=== PATIENT | female | born 1955 | race Caucasian/White ===

== ENCOUNTER 2022-03-15 12:57 | Outpatient (CLI) | payer OTHER, SELFPAY | END 2022-03-15 12:58 | disposition home or self-care (01) | LOC: ANHAUDASC 12:59 → ANHAUDIO 13:05 | PROVIDERS: PCP Family Medicine; Visit Provider Family Medicine | DX: H91.90 Unspecified hearing loss, unspecified ear (principal) | CPT/HCPCS: 92557; 92567 ==

== ENCOUNTER 2022-05-20 03:28 | Day surgery (SDC) | payer OTHER, SELFPAY ==
[2022-05-13 11:27] VITALS: BMI 31.9
--- NOTE | 2022-05-19 12:42 | SUR.PREOP ---
1243 PATIENT CALLED AND INSTRUCTED NOT TO TAKE THE MAGNESIUM CITRATE DUE TO POTENTIAL BACTERIAL CONTAMINATION. PATIENT VOICED UNDERSTANDING.
--- NOTE | 2022-05-19 13:35 | PM.HPGS ---
History of Present Illness History of Present Illness Consent: Risks, benefits, and alternatives have been discussed and questions answered. Patient agrees to proceed with procedure. Chief complaint: abdominal pain, diarrhea Narrative: Pita Clements is a 66 year old female Referred for investigation of abdominal pain and also diarrhea. Her father had colon cancer. Review of Systems Review of Systems: All systems reviewed & are unremarkable except as noted in HPI and below PMFSH Past Medical History Medical History Anxiety Shingles Surgical History Surgical History delivery delivered Deficient knowledge of hysterectomy H/O abdominoplasty H/O colonoscopy 05/20/22 repeat 5 years H/O esophagogastroduodenoscopy 05/20/22 History of repair of hiatal hernia Tonsillectomy planned Family History Family History Father Hypertension Family history of arthritis Family history of malignant neoplasm Carcinoma of colon Depression Cerebrovascular accident Mother Family history of chronic obstructive pulmonary disease Family history of emphysema Depression Thyroid disorder Sibling Depression Thyroid disorder Social History Social History Smoking status: Never smoker Second hand tobacco smoke exposure: No Alcohol intake: never Substance use: never Substance use type: does not use Living arrangements: with family Spiritual care concerns: No Agree to blood products: Yes Meds Home Medications and Allergies Home Medications Medication Instructions Recorded Confirmed Type No Home Medications 05/13/22 05/13/22 History Allergies Allergy/AdvReac Type Severity Reaction Status Date / Time No Known Allergies Allergy Unknown Verified 05/20/22 10:28 Exam Const: General: alert Orientation/consciousness: patient oriented x3 Resp: Auscultation: clear to auscultation bilaterally Cardio: Rhythm: regular rhythm GI: GI Palp: Yes Soft to palpation and No Tenderness to palpation present (GI) Neuro: General: patient oriented x3 Assessment and Plan Assessment and plan (1) GERD (gastroesophageal reflux disease): Code(s): K21.9 - Gastro-esophageal reflux disease without esophagitis Status: Acute Assessment and Plan: EGD with possible biopsy or dilatation or cautery. (2) Chronic diarrhea: Code(s): K52.9 - Noninfective gastroenteritis and colitis, unspecified Status: Acute Assessment and Plan: Colonoscopy with possible biopsy or polypectomy or cautery or injection of substances.
[2022-05-20 10:29] VITALS: BP 132/80; PULSE 70; RESP 18; TEMP 36.3; O2SAT 99; BMI 31.1
--- NOTE | 2022-05-20 10:32 | P.PNAN_ITS ---
Anes - Initial Pre Proc Eval Procedure: Operation Date: 05/20/22 12:30 Proposed Procedures p Esophagogastroduodenoscopy & Colonoscopy - Satinder Emerson MD Date/Time: 05/20/22 10:32 Surgeon: Satinder Emerson MD Pre Op Diagnosis: abdominal pain, diarrhea Patient Data Age: 66 Gender: F Height: 1.6 m Weight: 79.6 kg Last Vital Signs Temp 36.3 C L 05/20/22 10:29 Pulse 70 05/20/22 10:29 Resp 18 05/20/22 10:29 BP 132/80 05/20/22 10:29 Pulse Ox 99 05/20/22 10:29 O2 Del Method Room Air 05/20/22 10:29 Allergies Allergy/AdvReac Type Severity Reaction Status Date / Time No Known Allergies Allergy Unknown Verified 05/20/22 10:28 Home Medications Medication Instructions Recorded Confirmed Type No Home Medications 05/13/22 05/13/22 History Patient hx anesthesia problems: none Family hx anesthesia problems: none Results Review: All pre-operative results and documents have been reviewed as part of the pre-o perative evaluation. [facility] Past Medical History Medical History Anxiety Shingles Surgical History Surgical History delivery delivered Deficient knowledge of hysterectomy H/O abdominoplasty History of repair of hiatal hernia Tonsillectomy planned Family History Family History Father Hypertension Family history of arthritis Family history of malignant neoplasm Carcinoma of colon Depression Cerebrovascular accident Mother Family history of chronic obstructive pulmonary disease Family history of emphysema Depression Thyroid disorder Sibling Depression Thyroid disorder Social History Social History Smoking status: Never smoker Second hand tobacco smoke exposure: No Alcohol intake: never Substance use: never Substance use type: does not use Living arrangements: with family Spiritual care concerns: No Agree to blood products: Yes Anes - Eval Final PreProcedure Day of Procedure 05/20/22 10:32 Patient weight: obese Heart: regular rate and rhythm Lungs: clear to auscultation Airway: Mallampati scale class 1 Last oral intake: >/= 8 hours ASA classification: II Emergent: no Anesthesia type and monitoring: general GIVS and standard monitoring Results Review: All pre-operative results and documents have been reviewed as part of the pre- operative evaluation. Informed Consent: The patient's anesthetic plan and its attendant risks and benefits were discussed with the patient/family/POA. Questions were solicited and answers provided to the satisfaction of the patient/family/POA.
[2022-05-20] MEDS: LACTATED RINGERS 1,000 ML 150 ML IV CONT (10:36)
--- NOTE | 2022-05-20 11:09 | SUR.OPER ---
EGD start 1109 end 1116 Colon start 1123
[2022-05-20] MEDS: SIMETHICONE ORAL SUSPENSION 20 MG/0.3 ML 30 ML BOTTLE 0.6 ML IRRIGATION (11:10)
[2022-05-20 11:34] VITALS: BP 105/65; PULSE 74; RESP 19; O2SAT 95
[2022-05-20 11:44] VITALS: BP 122/77; PULSE 60; RESP 19; O2SAT 100
[2022-05-20 12:04] VITALS: BP 134/79; PULSE 52; RESP 12; O2SAT 100
== END 2022-05-20 12:08 | disposition home or self-care (01) ==
PROVIDERS: PCP Family Medicine; Visit Provider Internal Medicine Gastroenterology
PROC: 0DJ08ZZ Inspection of Upper Intestinal Tract, Via Natural or Artificial Opening Endoscopic (ICD-10-PCS; CPT 43235; principal; 2022-05-20 12:30)
DX: Z12.11 Encounter for screening for malignant neoplasm of colon (principal); R19.7 Diarrhea, unspecified; K57.30 Diverticulosis of large intestine without perforation or abscess without bleeding; Z80.0 Family history of malignant neoplasm of digestive organs; K22.2 Esophageal obstruction; Z98.84 Bariatric surgery status
CPT/HCPCS: 43249; 43239; G0105; 87081; 88305; J2704; J7120

== ENCOUNTER 2022-05-24 14:53 | Outpatient (CLI) | payer OTHER, SELFPAY ==
--- NOTE | 2022-05-24 15:01 | ECG_ITS ---
Measurements Intervals [place] Rate: 80 P: 17 CT: 140 QRS: 23 QRSD: 86 T: 26 QT: 362 QTc: 418 Interpretive Statements SINUS RHYTHM BASELINE ARTIFACT LOW-VOLTAGE QRS ABNORMAL ECG NO PREVIOUS ECG AVAILABLE FOR COMPARISON Electronically Signed On 05-24-2022 16:39:07 CDT by Efraín Harper M.D.
[2022-05-24 15:30] LABS: Hematocrit 43.1 % (37.0-47.0); Hemoglobin 14.1 g/dL (12.0-15.0)
== END 2022-05-24 14:54 | disposition home or self-care (01) ==
LOC: ANHSURGERY 14:57
PROVIDERS: Anesthesiology; PCP Family Medicine; Visit Provider Surgery Plastic and Reconstructive Surgery
DX: L57.4 Cutis laxa senilis (principal); Z01.818 Encounter for other preprocedural examination
CPT/HCPCS: 36415; 85014; 85018; 93005

== ENCOUNTER 2022-06-01 00:05 | Day surgery (SDC) | payer OTHER, SELFPAY ==
[2022-05-24 12:18] VITALS: BMI 31.1
--- NOTE | 2022-05-24 12:29 | PC.NURSE ---
PRE-OP INSTRUCTIONS, PLEASE READ CAREFULLY Report to the Outpatient Waiting Room, entrance under the green pavilion located off [facility], at time _0700_ on date _06/01/22_. OR Time: _0900_. - A mask is required within the hospital. - You and your visitor will be asked a series of questions to screen for COVID 19 for your protection. - Only one visitor is allowed at this time. - The patient visitor is requested to leave or wait in car when not with patient. -PACK A SMALL OVERNIGHT BAG AND LEAVE IN THE CAR. VISITING HOURS 10AM-8PM, PARK IN FRONT PARKING LOT AND USE MAIN HOSPITAL ENTRANCE. Patients may have clear liquids (water, carbonated beverages, clear teas, apple juice) until 3 hours prior to surgery (0600 AM) with a maximum of 20 ounces. - No food from midnight until time of surgery Take the following medications with a SIP of water the morning of surgery: _N/A_ Medications to discontinue per physician _N/A__, Date to take last dose Please no make-up, nail maltese, hairspray, perfume, deodorant, or body powder the day of surgery. No jewelry (including any body piercings) or valuables the day of surgery, leave them at home. Please take a shower or bath the night before, or the morning of, surgery with an antibacterial soap. Wear comfortable, loose fitting clothing. - Jewelry must be removed prior to entering the operating room. Rings and piercings that are not removed may be cut off. - The hospital will not accept responsibility for valuables. - Please leave all valuables, including medications, at home the day of surgery. If you are going home after surgery, a licensed star route mail driver must drive you home. - NO public transportation without another adult. - We recommend that an adult stay with you for 24 hours following discharge. - We also recommend that you do not drive, make important decision, drink alcoholic beverages, or take any drugs that were not prescribed by your health care provider for at least 24 hours after your discharge time. Follow any additional instructions given to you from your surgeon. If you or anyone in your household have experienced Covid symptoms in the past week, please notify your surgeon or the nurse liaison at the phone number below for possible testing. Telephone instructions given to _PT_and asked if any additional questions and then verbalized understanding. Patient advised to call surgeon office or pre surgery nurse liaison [phone] if any additional questions.
[2022-06-01] VITALS (9 sets, daily range): BP systolic 107–131; BP diastolic 63–80; PULSE 67–113; RESP 12–18; TEMP 36.2–36.6; O2SAT 96–100
--- NOTE | 2022-06-01 06:30 | W.PM.PROC2 ---
Procedure Note - Detailed Date of Procedure 06/01/22 Pre-op Diagnosis skin laxity Post-op Diagnosis Same Procedure Performed 1. Bilateral upper eyelid blepharoplasty 2. Facial rhytidectomy 3. Cervicoplasty Surgeon Dequan Soto MD Description of Procedure Preoperatively the risks, benefits, alternatives were discussed in extensive detail. I want her to be very realistic about the risks involved as well as expectations. Reviewed what we can and cannot accomplish. Realistic expectations of outcome. All questions were answered to satisfaction. Consent obtained. She was marked in the preoperative holding area with her verification. For her upper eyelids I marked along her tarsal crease. I did a pinch test and verified no lagophthalmos with simulated skin resection. Taken to the operating room placed supine on the operating room table. Anesthesia provided by anesthesiology. Prepped and draped in standard sterile fashion. Surgical time-out was taken. I copiously irrigated the eyes with BSS solution. Temporary tarsorrhaphy was placed with a 5 0 nylon. Blepharoplasty 1% lidocaine and 0.25% Marcaine with epinephrine was used anesthetize locally. I sharply incised along the planned blepharoplasty incision lines. I elevated skin flap. I then incised in the direction of the muscle fibers the orbicularis. I opened the medial and middle fat compartment removed only clearly excess adiposity from this verifying a strict hemostasis. I closed using a running subcuticular 5 0 Prolene. This was held medial and lateral with Steri-Strips and benzoin. Face / Neck Local anesthesia was provided with a tumescent solution using lidocaine, epinephrine, and TXA. Once adequate time for effect a fifteen blade used to make a submental incision. Dissection was continued down identified platysma muscle. Elevated skin flaps with good adiposity of the deep surface throughout the neck. Excess preplatysmal fat was removed. I then went sub platysmal and deep fat of the small portion. Care was taken to make sure there was a good smooth contour under the submental area. There really was minimal protrusion of the submandibular glands noted. I plicated the digastric muscle with 2-0 Vicryl. I then slightly trimmed the platysma muscle and imbricated as with vertical mattress sutures using 2-0 Vicryl in multiple layers. Also completed inferior platysmal release with no evidence of neurovascular or other structure injury. I then proceeded made the remainder of the incisions. I elevated skin flaps with good adequate adiposity of the deep surface to have good contour. This was continued for all the areas necessary for mobilization. Next Platysma plication was completed in multiple layers using 2-0 Vicryl bilateral. This is an oblique fashion from the angle towards the malar prominence. Copious irrigated with saline solution and verified strict hemostasis. I placed 10 Franko drains the right 1 went subcutaneous left 1 a broad around under the platysma muscle. These drains were sutured in place postauricular with this 3-0 Vicryl. Low anterior neck has slight excess adiposity that was treated with suction lipectomy on a spatulated cannula. This was low volume < 10cc. The skin flaps were just placed into position without any tension. Trimmed as necessary. Preauricular was closed with 5 0 nylon. Postauricular with 5 0 chromic. I did fiorella in the hairline. Submental was closed using 3-0 Monocryl followed by running subcuticular 4-0 Monocryl and tissue glue. Temporary tarsorrhaphy suture removed. Dressings were placed. Patient was awoken without difficulty. All instrument sponge counts were correct at the end of the case. Estimated Blood Loss 75 Drains Yes (Bilateral franko) Packing No Pathology None sent Complications No immediate complications Condition Stable Disposition PACU
[2022-06-01 07:12] LABS: Urine Cotinine NEGATIVE
[2022-06-01] MEDS: LACTATED RINGERS 1,000 ML 30 ML IV CONT ×3 (07:19→14:19)
--- NOTE | 2022-06-01 08:43 | WPDANESEPPF ---
Anes - Initial Pre Proc Eval Procedure: Operation Date: 06/01/22 09:00 Proposed Procedures p Face and Neck Lift, - Dequan Soto MD s Bilateral Upper Eyelid Blepharoplasty - Dequan Soto MD Date/Time: 06/01/22 08:43 Surgeon: Dequan Soto MD Pre Op Diagnosis: skin laxity Patient Data Age: 66 Gender: F Height: 1.6 m Weight: 77.75 kg Last Vital Signs Temp 97.2 F L 06/01/22 06:55 Pulse 75 06/01/22 06:55 Resp 18 06/01/22 06:55 BP 131/80 06/01/22 06:55 Pulse Ox 98 06/01/22 06:55 O2 Del Method Room Air 06/01/22 06:55 Allergies Allergy/AdvReac Type Severity Reaction Status Date / Time No Known Allergies Allergy Unknown Verified 06/01/22 07:51 Home Medications Medication Instructions Recorded Confirmed Type docusate sodium 100 mg capsule 100 mg PO DAILY #14 caps 05/25/22 06/01/22 Rx (Colace) ondansetron 4 mg disintegrating 4 mg PO Q8H #21 tabs 05/25/22 06/01/22 Rx tablet hydrocodone 5 mg-acetaminophen 325 1 tablet PO Q6H PRN pain #30 tabs 05/26/22 06/01/22 Rx mg tablet lorazepam 0.5 mg tablet 0.5 mg PO QHS PRN anxiety #90 tabs 05/28/22 06/01/22 Rx Laboratory Tests 06/01/22 06:58 Cotinine Negative Patient hx anesthesia problems: none Family hx anesthesia problems: none Results Review: All pre-operative results and documents have been reviewed as part of the pre-operative evaluation. [facility] Past Medical History Medical History Anxiety Shingles Surgical History Surgical History delivery delivered Deficient knowledge of hysterectomy H/O abdominoplasty H/O colonoscopy 05/20/22 repeat 5 years H/O esophagogastroduodenoscopy 05/20/22 History of repair of hiatal hernia Tonsillectomy planned Family History Family History Father Hypertension Family history of arthritis Family history of malignant neoplasm Carcinoma of colon Depression Cerebrovascular accident Mother Family history of chronic obstructive pulmonary disease Family history of emphysema Depression Thyroid disorder Sibling Depression Thyroid disorder Social History Social History Smoking status: Never smoker Second hand tobacco smoke exposure: No Alcohol intake: never Substance use: never Substance use type: does not use Living arrangements: with family Spiritual care concerns: No Agree to blood products: Yes Anes - Eval Final PreProcedure Day of Procedure 06/01/22 08:43 Patient weight: obese Heart: regular rate and rhythm Lungs: clear to auscultation Airway: Mallampati scale class II Neurological: alert and oriented Last oral intake: >/= 8 hours ASA classification: II Emergent: no Anesthetic plan: proceed Anesthesia type and monitoring: general ETT Results Review: All pre-operative results and documents have been reviewed as part of the pre-operative evaluation. Informed Consent: The patient's anesthetic plan and its attendant risks and benefits were discussed with the patient/family/POA. Questions were solicited and answers provided to the satisfaction of the patient/family/POA.
--- NOTE | 2022-06-01 08:52 | WPDHPUPDATE1 ---
History and Physical Update Update Date/Time: 06/01/22 08:52 History and Physical has been reviewed, including an updated exam of the patient. There are NO changes in the patient's condition. Risks, benefits, and alternatives have been discussed and questions answered. Patient agrees to proceed with procedure.
[2022-06-01] MEDS: ceFAZolin 2 GM/D5W 50 ML 2 GM/50 ML BAG IVPB (08:56)
[2022-06-01] MEDS: TRANEXAMIC ACID 1,000MG/ISO100 1,000 MG/100 ML BAG 200 MG IVPB (09:07)
[2022-06-01] MEDS: LIDO 1%/EPINEPHRINE 1:100,000 50 ML VIAL INFILTRATE (09:25)
[2022-06-01] MEDS: BUPIVACAINE HCL 0.25% PF 30 ML VIAL INFILTRATE (09:25)
[2022-06-01] MEDS: fentaNYL CITRATE INJ (*CRX) 100 MCG/2 ML VIAL 25 MCG IV PUSH ×2 (14:06→14:10)
[2022-06-01] MEDS: ONDANSETRON INJ 4 MG/2 ML VIAL IV PUSH ×2 (14:12→20:34)
[2022-06-01] MEDS: MORPHINE SULFATE (*CRX) 2 MG/ML INJ IV PUSH ×3 (15:25→20:33)
[2022-06-01] MEDS: LACTATED RINGERS 1,000 ML 125 ML IV CONT ×2 (15:26→23:14)
--- NOTE | 2022-06-01 15:36 | OBPPTRN ---
1457 Patient transferred to post room #288 via bed. Oriented to unit, room, information board, rooming in, admission packet and security measures. Patient verbalizes understanding.
--- NOTE | 2022-06-01 15:41 | OBPPTRN ---
1457 Patient transferred to post room #288 via bed. Oriented to unit, room, information board, admission packet and security measures. Patient verbalizes understanding.
[2022-06-01] MEDS: DOCUSATE SODIUM 100 MG CAPSULE PO (20:32)
[2022-06-02 00:30] VITALS: BP 106/62; PULSE 67; RESP 12; TEMP 36.6; O2SAT 98
[2022-06-02] MEDS: oxyCODONE/ACETAMINOPHEN (*CRX) 5-325 MG TABLET PO ×2 (00:33→05:48)
[2022-06-02 04:45] VITALS: BP 102/59; PULSE 67; RESP 14; TEMP 36.7; O2SAT 100
[2022-06-02] MEDS: ONDANSETRON INJ 4 MG/2 ML VIAL IV PUSH (06:37)
[2022-06-02 06:40] VITALS: O2SAT 95
--- NOTE | 2022-06-02 06:48 | WPDPN ---
Progress Note: A&P Assessment and Plan (1) Encounter for cosmetic surgery: Code(s): Z41.1 - Encounter for cosmetic surgery Status: Acute Plan She is doing well after bilateral upper eyelid blepharoplasty and face and neck lift. Will plan for discharge home. Today we had a lengthy discussion about the care. Activity limitations. What monitor for. Made sure answered all of her and her families questions to their satisfaction. They voiced an understanding. I will see her back. She knows what medical emergency is in 1 to dial 911/ proceed to the ER. All other questions feel free to reach out any time. Subjective Date/time seen: 06/02/22 06:28 Interval history: Overnight she states she has done well. No fevers or chills. No nausea vomiting. No shortness of breath. Chest pain. No calf tenderness. Having a little difficulty eye. Otherwise no complaints. Of note her oxygen saturation dropped slightly overnight and she was placed on oxygen. She is doing well this morning with 94% air. Again. Chest pain shortness of breath Review of Systems Review of Systems: All systems reviewed & are unremarkable except as noted in HPI and below Exam Narrative: Alert oriented no obvious distress Respiratory unlabored All branches of facial nerve intact. PERRLA EOMI. Her left I did have a little crusting which was removed in at that point she was able to open her eye. No signs of infection. No hematoma. No seroma. Good color and capillary refill throughout. Drains are serosanguineous. No calf tenderness. Negative Homans Objective Data Vital Signs Vital Signs: Vital Signs - 24 hr 06/01/22 06:55 06/01/22 13:45 06/01/22 14:15 Temperature 36.2 C L 36.5 C Pulse Rate 75 113 H 104 H Respiratory Rate 18 12 12 Blood Pressure 131/80 107/72 118/63 Pulse Oximetry 98 99 100 Oxygen Delivery Room Air Simple Face Mask Simple Face Mask Oxygen Flow Rate 6 6 06/01/22 14:25 06/01/22 14:30 06/01/22 14:45 Temperature Pulse Rate 89 Respiratory Rate 12 12 Blood Pressure 115/73 116/69 Pulse Oximetry 96 96 Oxygen Delivery Room Air Nasal Cannula Nasal Cannula Oxygen Flow Rate 2 2 06/01/22 14:00 06/01/22 15:05 06/01/22 20:40 Temperature 36.4 C 36.6 C Pulse Rate 95 100 73 Respiratory Rate 12 18 14 Blood Pressure 120/75 117/69 123/73 Pulse Oximetry 99 97 97 Oxygen Delivery Simple Face Mask Oxygen Flow Rate 6 06/02/22 00:30 Temperature 36.6 C Pulse Rate 67 Respiratory Rate 12 Blood Pressure 106/62 Pulse Oximetry 98 Oxygen Delivery Oxygen Flow Rate Intake/Output Intake/Output: Intake & Output 05/30/22 05/31/22 06/01/22 06/02/22 23:59 23:59 23:59 23:59 Intake Total 1450 Output Total 1555 Balance -105 Meds/Results Medications: Active Medications Generic Name Dose Route Start Last Admin Trade Name Freq PRN Reason Stop Dose Admin Diazepam 5 mg 06/01/22 13:53 Diazepam (*Crx) 5 Mg Tablet PO TID PRN Anxiety Docusate Sodium 100 mg 06/01/22 21:00 06/01/22 20:32 Docusate Sodium 100 Mg Capsule PO 100 mg Q12HR ALAN Administration Lactated Ringer's 1,000 mls @ 125 mls/hr 06/01/22 13:55 06/01/22 23:14 Lr - Lactated Ringers Iv IV CONT 125 mls/hr .Q8H ALAN Administration Morphine Sulfate 2 mg 06/01/22 13:53 06/01/22 20:33 Morphine Sulfate (*Crx) 2 Mg/Ml Inj IV PUSH 2 mg Q2H PRN Administration Pain Ondansetron HCl 4 mg 06/01/22 13:53 06/02/22 06:37 Ondansetron Inj 4 Mg/2 Ml Vial IV PUSH 4 mg Q6H PRN Administration Nausea Oxycodone/Acetaminophen 1 - 2 tablet 06/01/22 13:53 06/02/22 05:48 Oxycodone/Acetaminophen (*Crx) 5-325 Mg Tablet PO 1 tablet Q6H PRN Administration Pain Labs Labs: Laboratory Results - last 24 hr 06/01/22 06:58 Cotinine Negative
--- NOTE | 2022-06-02 06:53 | PM.DS ---
DS: Admitting Diagnosis Discharge Date 06/02/2022 Admitting Diagnosis Encounter for cosmetic surgery DS: Discharge Diagnosis Discharge Diagnosis (1) Encounter for cosmetic surgery: Code(s): Z41.1 - Encounter for cosmetic surgery Status: Acute DS: Summary Hospital Course Hospital Course: She underwent bilateral upper eyelid blepharoplasty as well as face and neck lift. Postoperatively she has done well. Pain controlled. Ambulating. Tolerating diet. Will plan for discharge home. I will see her back. Time spent discussing smoking cessation with patient: more than 10 minutes Time Spent with Patient Time attestation: Total time spent providing and/or coordinating discharge services: Exam Narrative: Alert oriented no obvious distress Respiratory unlabored All branches of facial nerve intact. PERRLA EOMI. Her left I did have a little crusting which was removed in at that point she was able to open her eye. No signs of infection. No hematoma. No seroma. Good color and capillary refill throughout. Drains are serosanguineous. No calf tenderness. Negative Homans DS: Data Data Completed and Pending Labs on day of discharge: Labs from last 24 hours 06/01/22 06:58 Cotinine Negative Discharge Plan Discharge Patient Disposition: Home, Self-Care Discharge Instructions: POST OPERATIVE DISCHARGE INSTRUCTIONS DEQUAN SOTO M.D. [facility] P[facility] SURGERY [address] [place] [address] [address] for 24 hours after anesthesia and while you are taking pain medication. Take all prescribed medication as directed Diet as tolerated. No lifting or activity that raises blood pressure for 48 hours. Regular walking / ambulation. No showering until directed to. Once you shower do not take pain medication before showering as the combination of medication and heat may cause you to feel dizzy or pass out. No pools or tubs for 2 weeks. Call with any questions or concerns. Head of bed elevated. Dressing Care: Leave white steri strips (forehead and temples) in place. Continue facelift wrap 23 hours per day. Sponge bath face / neck until follow-up. If you have any questions or concerns, please call the office . If it is after hours you will be directed to the business administration instructor exchange. Shortness of breath, chest pain, or other medical emergency dial 911 / proceed to the Emergency Room. Stand Alone Forms: General Discharge Instructions Follow-up/Referrals: Dequan Soto MD [Physician] - 1 Week Discharge Medications: Continued ondansetron 4 mg tablet,disintegrating 4 mg PO Q8H Qty: 21 0RF docusate sodium [Colace] 100 mg capsule 100 mg PO DAILY Qty: 14 0RF hydrocodone-acetaminophen 5-325 mg tablet 1 tablet PO Q6H PRN (Reason: pain) Qty: 30 0RF lorazepam 0.5 mg tablet 0.5 mg PO QHS PRN (Reason: anxiety) Qty: 90 0RF
--- NOTE | 2022-06-02 07:44 | WPDANESPN ---
Anes - Prog Note Post-Op Date/Time: 06/02/22 07:44 Cardiovascular status: normal Respiratory status: normal Airway patency: baseline Mental status: baseline Post-Op hydration status: normal Vital Signs: Last Vital Signs Temp 98.1 F 06/02/22 04:45 Pulse 67 06/02/22 04:45 Resp 14 06/02/22 04:45 BP 102/59 L 06/02/22 04:45 Pulse Ox 95 06/02/22 06:40 O2 Del Method Room Air 06/02/22 06:40 O2 Flow Rate 2 06/01/22 14:45 Pain Score (VAS): 11/02 I/O: Intake & Output 06/01/22 06/01/22 06/02/22 15:59 23:59 07:59 Intake Total 350 1100 Output Total 550 205 Balance -200 895 Post-procedural complaints: none Patient Feedback: Patient satisfied with anesthetic care.
[2022-06-02 08:05] VITALS: BP 98/56; PULSE 57; RESP 18; TEMP 36.5; O2SAT 99
[2022-06-02] MEDS: IBUPROFEN 600 MG TABLET PO (10:40)
[2022-06-02] MEDS: DOCUSATE SODIUM 100 MG CAPSULE PO (10:40)
== END 2022-06-02 13:34 | disposition home or self-care (01) ==
LOC: ANHSURGERY 13:53 → ANHOB2 14:31
PROVIDERS: PCP Family Medicine; Visit Provider Surgery Plastic and Reconstructive Surgery
PROC: (CPT 15824; principal; 2022-06-01 09:00)
PROC: (CPT 15822; 2022-06-01 09:00)
PROC: (CPT 15876; 2022-06-01 09:00)
DX: Z41.1 Encounter for cosmetic surgery (principal); L57.4 Cutis laxa senilis; F41.9 Anxiety disorder, unspecified; E66.9 Obesity, unspecified; Z68.30 Body mass index [BMI] 30.0-30.9, adult; Z79.899 Other long term (current) drug therapy
CPT/HCPCS: 15822; 15819; 15825; 80307; 99199; A9270; J0171; J0330; J0690; J1100; J1170; J2250; J2270; J2370; J2405; J2704; J2710; J3010; J7030; J7120; Q9968

== ENCOUNTER 2023-05-07 11:31 | Emergency (ER) | payer OTHER, SELFPAY ==
[2023-05-07] VITALS (11 sets, daily range): BP systolic 120–149; BP diastolic 70–94; PULSE 64–78; RESP 11–18; TEMP 36.1; O2SAT 96–100
--- NOTE | ~2023-05-07 | CT_ITS ---
EXAMINATION: CT abdomen pelvis w con DATE: 05/07/2023 13:15 INDICATION: Worsening pain at the ventral abdominal wall hernia TECHNIQUE: Computed tomography (CT) of the abdomen and pelvis was performed with 100 CC Omnipaque 350 intravenous contrast. Automated exposure control and iterative reconstruction technique were employe d. Exam dose: 350.61 mGy-cm total exam DLP. COMPARISON: None. FINDINGS: There is mild bilateral dependent lower lobe atelectasis. Normal heart size. No pericardial or pleural effusion. Small sliding hiatal hernia. One or more filling defects consistent with polyp and/or stones is suggested in the gallbladder. No g allbladder wall thickening or pericholecystic fluid or fat stranding. No hepatic, splenic, pancreatic, and adrenal space-occupying mass lesion. 5 mm probable mid to upper right renal cyst and 4.5 mm lower pole right renal probable cyst. 12 mm upper pole left renal cyst. No urinary tract calculus or hydroureteronephrosis. Large air-fluid level of the urinary bladder. As there been recent urinary bladder instrumentation?. No bladder wall thickening or intraluminal mass lesion of the urinary bladder is evident. Besides debo dder instrumentation or urinary tract infection, consider fistula as possible source for the air in t he bladder. Clinical correlation is advised. There is a prominent of fecal material and gas in the colon including some liquid stool in the cecum and ascending colon. Diverticulosis of the left colon; no CT evidence of diverticulitis is noted. No bowel obstruction, bowel wall thickening, pneumatosis or intraperitoneal free air is detected. Small fat-containing umbilical hernia. There is a supraumbilical ventral abdominal wall hernia and he rnia sac measures up to approximately 1.6 cm AP and 4 cm vertical 4.5 cm transverse dimension. The ne ck of the hernia measures approximately 1.2 cm. The hernia contains fat, no bowel. No inflammation of the herniated fat is evident. There is atherosclerotic calcification but normal caliber of the abdominal aorta. No intraperitoneal or retroperitoneal or pelvic mass lesion or adenopathy or ascites is noted. Prominent levoscoliosis of the thoracolumbar spine and prominent multilevel degenerative disc disease of the lumbar spine. No suspicious osteolytic or osteoblastic lesions are noted. IMPRESSION: Supraumbilical ventral abdominal wall hernia measuring approximately 1.6 x 4 x 4.5 cm, w ith fat content, no apparent inflammation or strangulation Small sliding hiatal hernia Cannot exclude gallbladder stones or polyps; consider gallbladder ultrasound correlation Renal cysts Large air-fluid level in the urinary bladder; differential diagnosis includes recent bladder instrume ntation, cystitis, fistula Diverticulosis of left colon; no apparent diverticulitis Reviewed, dictated and finalized at [facility]. Reviewed, dictated and finalized at [facility]. IMPRESSION: Supraumbilical ventral abdominal wall hernia measuring approximate ly 1.6 x 4 x 4.5 cm, with fat content, no apparent inflammation or strangulatio n Small sliding hiatal hernia Cannot exclude gallbladder stones or polyps; consider gallbladder ultrasound co rrelation Renal cysts Large air-fluid level in the urinary bladder; differential diagnosis includes r ecent bladder instrumentation, cystitis, fistula Diverticulosis of left colon; no apparent diverticulitis
--- NOTE | 2023-05-07 12:07 | ED.GENADULT ---
HPI - General Adult General Chief complaint: Unspecified <Chun Jiang PA-C - Last Filed: 05/07/23 17:21> Stated complaint: abd hernia <Chun Jiang PA-C - Last Filed: 05/07/23 17:21> Time Seen by Provider: 05/07/23 11:41 <Chun Jiang PA-C - Last Filed: 05/07/23 17:21> Source: patient <HO Doherty Last Filed: 05/07/23 17:21> Mode of arrival: ambulatory <HO Doherty Last Filed: 05/07/23 17:21> Limitations: no limitations <Chun Jiang PA-C - Last Filed: 05/07/23 17:21> History of Present Illness HPI narrative: This is a 67-year-old female who presents to the ED with chief complaint of mid abdominal pain beginning 1 month ago and worse today. Patient states that she has a recent diagnosis of ventral hernia and is scheduled to see Dr. Castro for office visit and surgery. States she has not yet been to his office yet, but the hernia was diagnosed by primary care. She states today it became significantly worse so she came to the ER. Endorses some nausea without vomiting. Denies fevers, chills, skin changes, urinary symptoms, diarrhea, problems with bowel movements, chest pain or shortness of breath. <Chun Jiang PA-C - Last Filed: 05/07/23 17:21> Related Data Home medications: Home Medications Medication Instructions Recorded Confirmed vilazodone 40 mg tablet (Viibryd) 40 mg PO DAILY 09/30/22 04/29/23 magnesium 200 mg tablet 400 mg PO BID 02/23/23 04/29/23 cholecalciferol (vitamin D3) 125 125 mcg PO DAILY 04/29/23 04/29/23 mcg (5,000 unit) capsule multivitamin 1 tablet PO DAILY 04/29/23 04/29/23 <HO Doherty Last Filed: 05/07/23 17:21> Allergies/adverse reactions: Allergies Allergy/AdvReac Type Severity Reaction Status Date / Time doxycycline AdvReac Intermediate Abdominal Uncoded 04/29/23 08:30 Pain <Chun Jiang PA-C - Last Filed: 05/07/23 17:21> [facility] Past Medical History Medical History: Medical History Anxiety Cholelithiasis Hospital discharge follow-up Insomnia Restless leg syndrome Shingles <Chun Jiang PA-C - Last Filed: 05/07/23 17:21> Surgical History Surgical History: Surgical History delivery delivered Deficient knowledge of hysterectomy H/O abdominoplasty H/O colonoscopy 05/20/22 repeat 5 years H/O esophagogastroduodenoscopy 05/20/22 History of repair of hiatal hernia Tonsillectomy planned <HO Doherty Last Filed: 05/07/23 17:21> Family History Family History: Family History Father Hypertension Family history of arthritis Family history of malignant neoplasm Carcinoma of colon Depression Cerebrovascular accident Mother Family history of chronic obstructive pulmonary disease Family history of emphysema Depression Thyroid disorder Sibling Depression Thyroid disorder <Chun Jiang PA-C - Last Filed: 05/07/23 17:21> Social History Social History: Social History Smoking status: Never smoker Second hand tobacco smoke exposure: No Alcohol intake: never Substance use: never Substance use type: does not use Lack of Transportation: No Lack of Food: Never True Current Housing: I Have Housing Concerned About Future Housing: No Difficulty Paying Gas/Electric Bills: No Difficulty Paying for Meds: No Currently Unemployed: No Difficulty w/ Childcare or Family Care: No Living arrangements: with family Occupation/Education: occupation Gender identity (if verbalized by the patient): Female Sexual Orientation (if Verbalized by the Patient): Straight or Heterosexual Spiritual care concerns: No Agree to blood products: Yes <HO Doherty Last Filed: 05/07/23 17:21> Exam Narr
[2023-05-07 12:26] LABS: Basophils Percent Auto 0.6 % (0.2-1.2); Eosinophils Absolute Auto 0.1 K/mm3 (0-0.3); Eosinophils Percent Auto 1.7 % (0-4.4); Hematocrit 45.3 % (37.0-47.0); Hemoglobin 14.6 g/dL (12.0-15.0); Immature Granulocyte Absolute 0.03 K/mm3 (0.00-0.031); Immature Granulocyte Percent A 0.5 % (0-0.5); Lymphocytes Absolute Auto 1.71 K/mm3 (0.9-3.2); Lymphocytes Percent Auto 26.6 % (18.3-44.2); Mean Corpuscular HGB Conc 32.2 g/dl (32-36); Mean Corpuscular Volume 96.2 fl (80-100); Mean Platelet Volume 9.9 fl (7.4-10.4); Monocytes Absolute Auto 0.5 K/mm3 (0.1-0.6); Monocytes Percent Auto 7.2 % (2.6-8.5); Neutrophils Absolute Auto 4.1 K/mm3 (1.3-6.7); Neutrophils Percent Auto 63.4 % (45.5-73.1); Platelet Count Result 190 k/mm3 (150-375); Red Blood Count 4.71 M/mm3 (4.2-5.4); White Blood Count 6.4 K/mm3 (4.5-10.0)
[2023-05-07] MEDS: KETOROLAC 15 MG/ML VIAL (*BKC) IV PUSH (12:27)
[2023-05-07] MEDS: ONDANSETRON INJ 4 MG/2 ML VIAL IV PUSH (12:28)
[2023-05-07 12:36] LABS: Alanine Aminotransferase 25 U/L (6-35); Albumin Level 4.5 g/dL (3.5-5.1); Alkaline Phosphatase 66 U/L (38-126); Anion Gap 5 mmol/L (8-16); Aspartate Amino Transferase 41 U/L (14-36); Bilirubin,Total 0.4 mg/dL (0.2-1.3); Blood Urea Nitrogen 16 mg/dL (7-17); Calcium 9.6 mg/dL (8.4-10.2); Carbon Dioxide 34 mmol/L (22-30); Chloride 100 mmol/L (98-107); Estimated CRCL calculation 52 ml/min; Estimated Glomerular Filt Rate > 60; Glucose 105 mg/dL (65-110); Lipase 101 U/L (23-300); Potassium 4.3 mmol/L (3.4-5.0); Sodium 139 mmol/L (137-145)
== END 2023-05-07 14:41 | disposition home or self-care (01) ==
PROVIDERS: Emergency Provider Physician Assistant; PCP Physician Assistant Medical
DX: K43.9 Ventral hernia without obstruction or gangrene (principal)
CPT/HCPCS: 36415; 74177; 80053; 83690; 85025; 96374; 96375; 99284; J1885; J2405; Q9967

== ENCOUNTER 2023-05-19 02:47 | Day surgery (SDC) | payer OTHER, SELFPAY ==
--- NOTE | 2023-05-18 11:16 | PC.NURSE ---
Report to the Outpatient Waiting Room, entrance under the green pavilion located off [facility], at time __0700 on date __05/19/23 . Planned Procedure Time: ___0900 . Time changes happen often and if your time is changed the preop area will call you the afternoon before. - You and your visitor will be asked to self-screen and do not enter if you have any COVID symptoms. - A mask is optional within the hospital at this time. Patients may have clear liquids (water, carbonated beverages, clear teas, apple juice) until 3 hours prior to surgery with a maximum of 20 ounces. - No food from midnight until time of surgery - Infants may have breast milk until 4 hours before surgery, infant formula 6 hours prior to surgery. - Children will be allowed to drink immediately following surgery. If applicable, please bring a bottle or sippy cup to assist with drinking. Juice, water, soda, and popsicles are readily available. For infants on formula, please bring formula the day of surgery. Pacifiers are allowed. Take the following medications with a SIP of water the morning of surgery: VILAZODONE DO NOT STOP ANY OF YOUR OTHER PRESCRIPTION MEDICATIONS PRIOR TO SURGERY ?EXCEPT THE FOLLOWING Medications to discontinue per physician -SURGERY TOMORROW Date to take last dose Please no make-up, nail swedish, hairspray, perfume, deodorant, or body powder the day of surgery. No jewelry (including any body piercings) or valuables the day of surgery, leave them at home. Please take a shower or bath the night before, or the morning of, surgery with an antibacterial soap. Wear comfortable, loose fitting clothing. Children are encouraged to wear pajamas. - Jewelry must be removed prior to entering the operating room. Rings and piercings that are not removed may be cut off. - The hospital will not accept responsibility for valuables. - Please leave all valuables, including medications, at home the day of surgery. HIBICLENS SHOWER MORNING OF SURGERY If you are going home after surgery, a licensed truck driver instructor must drive you home. - NO public transportation without another adult if you receive anesthesia. - We recommend that an adult stay with you for 24 hours following discharge. - We also recommend that you do not drive, make important decision, drink alcoholic beverages, or take any drugs that were not prescribed by your health care provider for at least 24 hours after your discharge time. For Pediatric surgeries, we recommend two adults accompany the child home. Follow any additional instructions given to you from your surgeon. If you or anyone in your household have experienced Covid symptoms in the past week, please notify your surgeon or the nurse liaison at the phone number below for possible testing. Telephone instructions given to __PT and asked if any additional questions and then verbalized understanding. Patient advised to call surgeon office or pre surgery nurse liaison [phone] if any additional questions.
[2023-05-18 11:17] VITALS: BMI 24.7
--- NOTE | 2023-05-19 07:17 | WPDHPUPDATE1 ---
History and Physical Update Update Date/Time: 05/19/23 07:17 History and Physical has been reviewed, including an updated exam of the patient. There are NO changes in the patient's condition. Risks, benefits, and alternatives have been discussed and questions answered. Patient agrees to proceed with procedure.
[2023-05-19] MEDS: KETOROLAC 15 MG/ML VIAL (*BKC) IV PUSH ×2 (07:40→08:45)
[2023-05-19] MEDS: ACETAMINOPHEN 500 MG TABLET 1000 MG PO (07:40)
[2023-05-19] MEDS: LACTATED RINGERS 1,000 ML 30 ML IV CONT ×2 (07:40→09:08)
--- NOTE | 2023-05-19 07:44 | WPDANESEPPF ---
Anes - Initial Pre Proc Eval Procedure: Operation Date: 05/19/23 07:30 Proposed Procedures p Open Incisional Hernia Repair with Mesh - Scotty Castro MD Date/Time: 05/19/23 07:44 Surgeon: Scotty Castro MD Pre Op Diagnosis: [facility] incisional hernia Patient Data Age: 67 Gender: F Height: 1.6 m Weight: 63.5 kg Allergies Allergy/AdvReac Type Severity Reaction Status Date / Time doxycycline AdvReac Intermediate Abdominal Uncoded 05/18/23 11:32 Pain Home Medications Medication Instructions Recorded Confirmed Type vilazodone 40 mg tablet (Viibryd) 40 mg PO DAILY 09/30/22 05/18/23 History lorazepam 0.5 mg tablet 0.5 mg PO QHS PRN anxiety #90 tabs 11/04/22 05/18/23 Rx magnesium 200 mg tablet 400 mg PO BID 02/23/23 05/18/23 History cholecalciferol (vitamin D3) 125 125 mcg PO DAILY 04/29/23 05/18/23 History mcg (5,000 unit) capsule multivitamin 1 tablet PO DAILY 04/29/23 05/18/23 History ascorbic acid (vitamin C) 1,000 mg 1,000 mg PO DAILY 05/18/23 05/18/23 History tablet Patient hx anesthesia problems: post op nausea/vomiting Family hx anesthesia problems: none Results Review: All pre-operative results and documents have been reviewed as part of the pre-operative evaluation. [facility] Past Medical History Medical History (Updated 05/18/23 @ 11:58 by Gabby Ni PA-C) Anxiety Cholelithiasis Hospital discharge follow-up Insomnia Restless leg syndrome Shingles Thyromegaly thyroid US normal. Surgical History Surgical History delivery delivered Deficient knowledge of hysterectomy H/O abdominoplasty H/O colonoscopy 05/20/22 repeat 5 years H/O esophagogastroduodenoscopy 05/20/22 History of repair of hiatal hernia Tonsillectomy planned Family History Family History Father Hypertension Family history of arthritis Family history of malignant neoplasm Carcinoma of colon Depression Cerebrovascular accident Mother Family history of chronic obstructive pulmonary disease Family history of emphysema Depression Thyroid disorder Sibling Depression Thyroid disorder Social History Social History Smoking status: Never smoker Second hand tobacco smoke exposure: No Alcohol intake: never Substance use: never Substance use type: does not use Lack of Transportation: No Lack of Food: Never True Current Housing: I Have Housing Concerned About Future Housing: No Difficulty Paying Gas/Electric Bills: No Difficulty Paying for Meds: No Currently Unemployed: No Difficulty w/ Childcare or Family Care: No Living arrangements: alone Occupation/Education: occupation Gender identity (if verbalized by the patient): Female Sexual Orientation (if Verbalized by the Patient): Straight or Heterosexual Spiritual care concerns: No Agree to blood products: Yes Anes - Eval Final PreProcedure Day of Procedure 05/19/23 07:44 Patient weight: normal Heart: regular rate and rhythm Lungs: clear to auscultation Airway: Mallampati scale class II Neurological: alert and oriented Last oral intake: >/= 8 hours ASA classification: II Emergent: no Anesthetic plan: proceed Results Review: All pre-operative results and documents have been reviewed as part of the pre-operative evaluation. Informed Consent: The patient's anesthetic plan and its attendant risks and benefits were discussed with the patient/family/POA. Questions were solicited and answers provided to the satisfaction of the patient/family/POA.
[2023-05-19 07:50] VITALS: BP 121/73; PULSE 67; RESP 14; TEMP 36.5; O2SAT 99
[2023-05-19] MEDS: ceFAZolin 2 GM/D5W 50 ML 2 GM/50 ML BAG IVPB (07:51)
[2023-05-19] MEDS: BUPivacaine HCL 0.5% PF 30 ML VIAL INFILTRATE (07:51)
[2023-05-19] MEDS: SCOPOLAMINE 1.5 MG PATCH TRANSDERM (07:54)
[2023-05-19 09:15] VITALS: BP 129/73; PULSE 78; RESP 12; TEMP 36.4; O2SAT 100
--- NOTE | 2023-05-19 09:28 | W.PM.PROC2 ---
Procedure Note - Detailed Date of Procedure 05/19/23 Pre-op Diagnosis Incarcerated epigastric incisional hernia Post-op Diagnosis Same Procedure Performed Open incarcerated epigastric this is incisional hernia repair with Ventralex ST mesh. Surgeon Scotty Castro MD Anesthesia General Indications Patient is a 67-year-old female who several years ago underwent a laparoscopic Tiki fundoplication that I performed. She has been doing well in respect to that surgery. Unfortunate she has returned now with what appears to be a port site incisional hernia and 1 in the epigastric incisions. She has had multiple presentations to the emergency room because of pain but has never had any evidence of bowel obstruction. CT scan shows an approximate 2cm epigastric fascial defect in the midline with fatty tissue incarcerated within the hernia sac. She presents now for an elective open incarcerated incisional hernia repair with mesh. Findings 2cm fascial defect in the epigastric region about 4cm inferior to the tip of the xiphoid process. Incarcerated contents of the hernia sac was preperitoneal fat. Description of Procedure After informed consent was obtained patient brought to the operating room she was placed supine position and then general endotracheal anesthesia was administered. The abdomen was then prepped draped usual sterile fashion. A time-out was then performed correctly identifying the patient as well as procedure to be performed. She was given perioperative IV antibiotics. I then made a longitude incision just over the palpable mass epigastric region the abdomen. Dissection carried down through the subcu tissue electrocautery. The hernia sac was encountered and the subcutaneous tissues around the hernia sac was dissected free of the hernia sac down to the neck of the hernia sac at the fascial level. I then opened the hernia sac and cut away the hernia sac utilize electrocautery. Small amount of preperitoneal fat was noted. This was reduced back through the defect. The fascial defect measured approximately 2cm in diameter. I placed my index finger underneath the anterior abdominal wall and bluntly dissected around the surface anterior abdominal wall. There were no adhesions of bowel or omentum to the undersurface of the anterior abdominal wall in this region. I then chose a piece of ultra light ST mesh measuring 8cm in diameter and circular configuration. I then placed it through the defect into the abdomen and centered on the the defect. The barrier surface the mesh was placed intra-abdominal viscera and the prosthetic surface surface the mesh was in contact with the undersurface anterior abdominal wall. The edges of the mesh were then laid out so that was flat then traction upwards on the mesh straps approximated the mesh to the undersurface anterior abdominal wall the flat configuration. I then secured the mesh circumferentially with some 0 Ethibond sutures placed transfascially. The excess portion of the mesh straps were then cut away and then I palpated the mesh and it was well secured. I then irrigated out the mesh and the incision sterile saline solution. Hemostasis was excellent. I then proceeded to close the fascial edges over the mesh good tissue coverage. Interrupted 2-0 Vicryl sutures were used. I then proceeded to close subcutaneous tissue utilizing interrupted 3-0 Vicryl sutures and then the skin edges were approximated utilizing a running subcuticular 4 Monocryl suture. Exparel liposomal bupivacaine mixed was 0.5% Marcaine was injected around the incision for local anesthetic effect. Once the incision was then cleaned and then placed skin glue on the incision. The patient tolerated the procedure well no complications. All sponges, needles, and instrument counts were correct at the end procedure. EBL was _ 5 __cc. The patient was awakened and taken to recovery in stable and satisfactory condition. Implants Ventralex ST mesh 8cm circ
[2023-05-19 09:30] VITALS: BP 136/72; PULSE 65; RESP 12; O2SAT 100
[2023-05-19 09:45] VITALS: BP 126/69; PULSE 63; RESP 14; O2SAT 96
[2023-05-19 10:00] VITALS: BP 134/73; PULSE 59; RESP 16
[2023-05-19 10:30] VITALS: BP 119/71; PULSE 69; RESP 16
== END 2023-05-19 10:40 | disposition home or self-care (01) ==
PROVIDERS: PCP Physician Assistant Medical; Visit Provider Surgery
PROC: 0WQF0ZZ Repair Abdominal Wall, Open Approach (ICD-10-PCS; CPT 49592; principal; 2023-05-19 07:30)
DX: K43.0 Incisional hernia with obstruction, without gangrene (principal); F41.9 Anxiety disorder, unspecified
CPT/HCPCS: 49592; A9270; C1781; C9290; J0690; J1100; J1170; J1885; J2250; J2405; J2704; J2710; J3010; J7120

== ENCOUNTER 2023-07-14 14:11 | Outpatient (CLI) | payer OTHER, SELFPAY ==
--- NOTE | ~2023-07-14 | US_ITS ---
EXAMINATION: US soft tissue head and neck DATE: 07/14/2023 15:18 INDICATION: Bilateral submandibular palpable lumps TECHNIQUE: Multiple grayscale and Doppler ultrasound images of the left and right submandibular regio n of concern were obtained. COMPARISON: None FINDINGS: Normal symmetric appearance to the left and right submandibular glands. No pathologically enlarged ly mphadenopathy or other abnormal masses or fluid collections identified at the region of concern. IMPRESSION: 1. Normal on some of the bilateral submandibular regions with no pathologically enlarged lymphadenopa thy or other abnormal masses or fluid collection. Reviewed, dictated and finalized at [facility]. IMPRESSION: 1. Normal on some of the bilateral submandibular regions with no pathologically enlarged lymphadenopathy or other abnormal masses or fluid collection.
== END 2023-07-14 14:12 | disposition home or self-care (01) ==
PROVIDERS: PCP Physician Assistant Medical; Visit Provider Nurse Practitioner Family
DX: R22.1 Localized swelling, mass and lump, neck (principal)
CPT/HCPCS: 76536

== ENCOUNTER 2024-02-06 12:30 | Outpatient (RCR) | payer OTHER, SELFPAY ==
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
--- NOTE | 2023-12-16 17:01 | OPREHPOC ---
Outpatient Therapy Plan of Care This is a Multidisciplinary Plan of Care that may contain components documented by all disciplines (PT, OT, and ST.) PT Problem 1 PT Problem #1 Knowledge Deficit PT Goal 1 Goal Pt will be independent in HEP Pt will verbalize understanding of diagnosis and prognosis Target Visit 10 PT Problem 2 PT Problem #2 Impaired Strength PT Goal 1 Goal Pt will demo strength of 4/5 in all tested planes PT Problem 3 PT Problem #3 Impaired Range of Motion PT Goal 1 Goal Pt will demo cervical rotation to 45 degrees or greater Target Visit 5 PT Goal 2 Goal Pt will demo cervical spine lateral flexion of 30 degrees or greater PT Problem 4 PT Problem #4 Impaired Flexibility PT Goal 1 Goal Pt will demo improved upper trap tone and flexibility to allow for improved cervical motion
--- NOTE | 2024-01-23 16:56 | PCPTNOTE ---
Patient called & cancelled scheduled appointment this date due to family emergency
--- NOTE | 2024-01-30 16:07 | PCPTNOTE ---
Patient called & cancelled scheduled appointment this date due to illness
--- NOTE | 2024-02-08 18:22 | PTOPDC ---
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 States her neck is doing ok, but she is exhausted at the end of the day. Went on prednisone for a while, changed to Celebrex from Meloxicam for the last couple days. Self-perceived improvement: 90% Reports upper body strength is what she feels she still needs work on Assessment PT Clinical Summary Pt reports feeling 90% improved overall. She has also met all her goals for therapy. She has been educated in likelihood of future flare ups related to her diagnosis, how to return to therapy, and a flare-up program in her home exercises to minimize episodes of increased pain. Pt reports doesn't feel the need to continue therapy at this time. Thus she is being discharged for completing her goals. Plan of Care PT Services Indicated No
== END 2024-02-14 14:12 | disposition home or self-care (01) ==
LOC: ANHHIPT 12:30
PROVIDERS: PCP Physician Assistant Medical; Visit Provider Family Medicine
DX: M54.2 Cervicalgia (principal)
CPT/HCPCS: 97014; 97110; 97112; 97140; 97162; 97750; G0283

== ENCOUNTER 2024-07-26 14:00 | Outpatient (RCR) | payer OTHER, SELFPAY ==
--- NOTE | 2024-06-26 15:13 | PTOPEVAL1 ---
Assessment and note entered by aJckie Styles, PT Evaluation Information Assessment Status Evaluation Diagnosis impingement of right shoulder ICD-10 Condition Codes (PT) M25.511, abnormal posture, weakness Onset a couple months Subjective Information Was working for [employer] and had to crank a lever to bring a anjel bowl up which is a heavy bowl. Was at Orthopedist, was provided diclofenac and this didn't do anything. States declined steroid shot for now. No MRIs or CTs at the moment. Reports had to quit her job because of her shoulder two weeks ago and has not improved yet. Reported Pain Level Pain Score 4: Self Report Assessment PT Clinical Summary Pt presents with signs and symptoms consistent with impingement of right shoulder. She does also have a clicking occasionally and a (+) empty-can test on RUE which is suggestive of supraspinatus deficit. Pt also demo's abnormal thoracic alignment causing a significant right shoulder depression, possibly effecting her shoulder impingement. Pt demo's decreased strength of RTC muscles throughout as well. Pt will benefit from physical therapy to address alignment, muscle patterning, strengthening, and pain to meet her goals and return to PLOF. Plan of Care Interventions Electrical Stimulation,Hot Pack/Cold Pack,Manual Therapy,Mechanical Traction,Neuro Re-education, Patient/Caregiver Educati,Therapeutic Activities, Therapeutic Exercise,Self-Care/Home Management, Ultrasound Other Interventions [facility] PT Services Indicated Yes Treatment Frequency and 2x weekly x 10 visits Duration These treatments will address the objective and functional deficits as defined above. The patient will be advanced safely and appropriately in order for the patient to progress towards his/her prior level of function. Additional exercises will be introduced and as well as a comprehensive home exercise program upon discharge, if needed, ?to ensure carryover of functional gains achieved in the clinic. This treatment plan has been reviewed and agreement upon by the patient.
--- NOTE | 2024-06-26 15:13 | OPREHPOC ---
Outpatient Therapy Plan of Care This is a Multidisciplinary Plan of Care that may contain components documented by all disciplines (PT, OT, and ST.) PT Problem 1 PT Problem #1 Knowledge Deficit PT Goal 1 Goal / Goal Update Pt will be independent in HEP Pt will verbalize understanding of diagnosis and prognosis Target Visit 5 PT Problem 2 PT Problem #2 Pain PT Goal 1 Goal / Goal Update Pt will report lowest pain rating at 0/10 to show improvement in overall discomfort Target Visit 5 PT Goal 2 Goal / Goal Update Pt will report resolution of pain to return to PLOF Target Visit 10 PT Problem 3 PT Problem #3 Impaired Strength PT Goal 1 Goal / Goal Update BUE will demo 4/5 strength in all tested directions PT Problem 4 PT Problem #4 Impaired Range of Motion PT Goal 1 Goal / Goal Update Thoracic ROM will be 100% and equal on leonel with rotation and lateral flexion Target Visit 10
--- NOTE | 2024-07-16 15:31 | OTOPEVDC ---
Assessment and note entered by Yash Garcia, OTR/L, CHT Thank you for referring Pita Guadalupe to [facility].? An evaluation has been completed. No further treatment is needed. Evaluation Information & Discharge Summary 07/16/24 Assessment Status Evaluation Diagnosis Pain in left fingers Subjective Information Patient reports experiencing left thumb pain for years. 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 She states she retired a month ago and is feeling much better. She reports 0/10 pain today and that her pain maybe has gotten up to 1/10 in the last week. She has been performing ROM exercises on her own. Reported Pain Level Pain Score 0: Self Report Assessment OT Clinical Summary Patient referred to OT with left thumb pain, which patient is reporting has resolved since she retired about a month ago. signs and symptoms are consistent with OA vs tendonitis. Educated patient on ROM and gentle strengthening HEP for the left hand. Educated on joint protection techniques and general OA education. No further skilled OT indicated at this time. D/C OT with patient independent with all materials. Plan of Care OT Services Indicated No
--- NOTE | 2024-07-26 15:19 | PTOPDC ---
Assessment and note entered by Jackie Styles, PT Evaluation Information Assessment Status Discharge Diagnosis impingement of right shoulder ICD-10 Condition Codes (PT) M25.511,Weakness R53.1 Other ICD-10 Condition Codes ( abnormal posture PT) Onset a couple months Subjective Information Pt states does not feel she is any better than when she started. Last session came in really painful, but today is better. Still the worst sleeping at night Reported Pain Level Pain Score 6: Self Report Assessment PT Clinical Summary Pt has attended therapy consistently for her right shoulder pain. She demo's improvements in her posture however she cont to have increased pain especially at night and with use. While she shows full active ROM in flexion, abduction, and external rotation, she lacks internal rotation by 50% compared to angel ZAMORA's clicking with eccentric motion of abduction, and with internal/ external rotation. She also has a (+) click with Crank testing for labral impairment. She reports feeling as if she hasn't made any progress in therapy, and her pain reports have been varied. It would appear that patient would benefit from additional imaging and possible orthopeadic consultation versus continued therapy at this time . Thus patient is being discharged for max benefit being met at this time. Plan of Care PT Services Indicated No
== END 2024-07-26 15:21 | disposition home or self-care (01) ==
LOC: ANHHIPT 14:00
PROVIDERS: PCP Physician Assistant Medical; Visit Provider Physician Assistant Medical
DX: M75.41 Impingement syndrome of right shoulder (principal)
CPT/HCPCS: 97014; 97110; 97112; 97140; 97161; 97165; 97530; 97750; G0283

== ENCOUNTER 2024-07-31 12:31 | Outpatient (CLI) | payer OTHER, SELFPAY ==
--- NOTE | ~2024-07-31 | MR_ITS ---
MRI of the right shoulder Technique: Axial proton-density fat-sat images, coronal proton density fat-sat and T2 fat-sat images, and sagittal T1-weighted and T2 fat-sat images were acquired. Clinical History: Pain Findings: Moderate AC joint degenerative change present with] change and minimal subacromial spur. Co racoclavicular, coracoacromial, and coracohumeral ligaments are intact. There is a 6 x 7 mm full-thickness tear at the anterior, distal supraspinatus tendon insertion. There is moderate supraspinatus and infraspinatus tendinosis otherwise. Subscapularis tendon intact. Tendo n of the long head of the biceps is intact. No labral tear evident. Inferior glenohumeral ligament is intact. There is minimal glenohumeral joint effusion. No degenerati ve change of the glenohumeral joint. There is minimal fluid in the subacromial/subdeltoid bursa. Ther e is subcoracoid bursitis. No muscle atrophy or edema. Impression: 6 x 7 mm full-thickness tear at the anterior, distal supraspinatus tendon insertion. Moderate supraspinatus and infraspinatus tendinosis. Subcoracoid bursitis. Moderate AC joint degenerative change. Reviewed, dictated and finalized at [facility]. Impression: 6 x 7 mm full-thickness tear at the anterior, distal supraspinatus tendon inser tion. Moderate supraspinatus and infraspinatus tendinosis. Subcoracoid bursitis. Moderate AC joint degenerative change.
== END 2024-07-31 12:32 | disposition home or self-care (01) ==
PROVIDERS: PCP Physician Assistant Medical; Visit Provider Physician Assistant Medical
DX: M19.011 Primary osteoarthritis, right shoulder (principal); M75.101 Unspecified rotator cuff tear or rupture of right shoulder, not specified as traumatic
CPT/HCPCS: 73221

== ENCOUNTER 2024-12-04 01:01 | Day surgery (SDC) | payer OTHER, SELFPAY ==
--- NOTE | 2024-11-22 14:22 | PC.NURSE ---
Report to the Outpatient Waiting Room, entrance under the green pavilion located off [facility], at time 8 :30 am on date _12/04/24 . Planned Procedure Time: __10:30 am .? Time changes happen often and if your time is changed the preop area will call you the afternoon before. - You and your visitor will be asked to self-screen and do not enter if you have any COVID symptoms. Please call surgeon if you need to reschedule. - A mask is optional within the hospital at this time. Patients may have clear liquids (water, carbonated beverages, clear teas, apple juice) until 3 hours prior to surgery(7:30 am) with a maximum of 20 ounces. - No food from midnight until time of surgery and no smoking. This includes no chewing gum, candy or mints. Take only the following medications with a SIP of water on the morning of surgery: __vilazodone DO NOT STOP ANY OF YOUR OTHER PRESCRIPTION MEDICATIONS PRIOR TO SURGERY EXCEPT THE FOLLOWING Medications to discontinue per physician none Please no make-up, nail yemeni, hairspray, perfume, deodorant, or body powder the day of surgery.? No jewelry (including any body piercings) or valuables the day of surgery, leave them at home.? Please take a shower or bath the night before, or the morning of, surgery with an antibacterial soap.? Wear comfortable, loose fitting clothing.? Children are encouraged to wear pajamas. - Jewelry must be removed prior to entering the operating room.? Rings and piercings that are not removed may be cut off. - The hospital will not accept responsibility for valuables.? - Please leave all valuables, including medications, at home the day of surgery. If you are going home after surgery, a licensed short haul driver must drive you home.? - NO public transportation without another adult if you receive anesthesia. - We recommend that an adult stay with you for 24 hours following discharge. - We also recommend that you do not drive, make important decision, drink alcoholic beverages, or take any drugs that were not prescribed by your health care provider for at least 24 hours after your discharge time. Hold all vitamins and supplements for 3 days per anesthesiologist.last dose 11/30/24 Follow any additional instructions given to you from your surgeon. Telephone instructions given to __patient and asked if any additional questions and then verbalized understanding. Patient advised to call surgeon office or pre surgery nurse liaison [phone] if any additional questions.
[2024-11-22 14:39] VITALS: BMI 31.1
[2024-12-04] VITALS (9 sets, daily range): BP systolic 122–163; BP diastolic 70–100; PULSE 82–98; RESP 10–14; TEMP 36.4–36.8; O2SAT 94–99
--- OUTSIDE RECORDS SUMMARY | 2024-12-04 01:04 | XMS_ITS | Patient Health Summary ---
Author Organization [facility] Address [address] [place] [address] Care Team Providers Care Kaitara Taraka Name Role Phone Kali Lawson MD Primary Care Provider [phone] Note from [facility],non-owned Affiliates and Associated Physician Practices is amultiple site organization consisting of ambulatory clinics and hospital sitesin [place], [place], [place] and [place]. This disclosure is being madepursuant to the Care Everywhere program and may not contain all information available regarding this patient. Last updated 18.[facility] Allergies No known active allergies Medications * Be aware that medications may not be up to date on this document. Alwaysverify current medications with the patient. * vilazodone (Viibryd) 40 MG tablet(Started 02/24/2023) Take 1 (one) tablet by mouth once daily * terbinafine (LamISIL) 250 MG tablet(Started 04/27/2023) TAKE 1 TAB BY MOUTH DAILY FOR 1 WEEK, WAIT ONE MONTH AND REPEAT 3 TIMES IN TOTAL * Cholecalciferol (VITAMIN D3 PO) * Multiple Vitamins-Minerals (CENTRUM ULTRA WOMENS PO) * magnesium 500 MG tablet Take 1 (one) tablet by mouth once daily * Ascorbic Acid (VITAMIN C PO) Take 1,000 mg by mouth once daily * Other OTC allergy med * docusate sodium (Colace) 100 MG capsule(Started 05/04/2023) Take 1 (one) capsule by mouth once daily * polyethylene glycol 3350 (Miralax) 17 GM/SCOOP powder(Started 05/04/2023) Take 17 (seventeen) g by mouth once daily * oxyCODONE, immediate release, (Roxicodone) 5 MG tablet(Started 05/04/2023) Take 1 (one) tablet by mouth every 6 hours as needed for Pain Active Problems No known active problems Social History Tobacco Use Types Packs/Day Years Used Date Smoking Tobacco: Never Smokeless Tobacco: Never Tobacco Cessation:Counseling Given: Not Answered Alcohol Use Standard Drinks/Week Comments Never 0 (1 standard drink = 0.6 oz pur e alcohol) PHQ-2 Answer Date Recorded PHQ2 TOTAL SCORE 0 05/12/2023 Sex and Gender Information Value Date Recorded Sex Assigned at Female 04/29/2023 3:35 PM CDT Gender Identity Not on file Sexual Orientation Straight 04/29/2023 3: 35 PM CDT Last Filed Vital Signs Vital Sign Reading Time Taken Comments Blood Pressure 112/66 06/13/2023 9:04 AM CDT Pulse 58 05/04/2023 11:02 AM CDT Temperature 36.3 C (97.3 F) 05/04/2023 9:30 AM CDT Respiratory Rate 16 05/04/2023 11:02 AM CDT Oxygen Saturation 97% 05/04/2023 11:02 AM CDT Inhaled Oxygen Concentration - - Weight 66.2 kg (146 lb) 06/13/2023 9:04 AM CDT Height 160 cm (5' 3 ) 06/13/2023 9:04 AM CDT Body Mass Index 25.86 06/13/2023 9:04 AM CDT Medical Devices Implanted Type Area Hydrator Operator Device Identifier Shelf Expiration Date Model / Serial / Lot Sys Ureth Supp Obtryx Midurethral Trnstr Implanted:Qty: 1 on 05/04/2023 by Alfred Clarke MD at [facility] N/A: Vagina Kimengi Scimed 11/15/2025 [id number] / / [id number] Procedures * CARDIAC RHYTHM STRIP ORDER(Performed 05/07/2023) * CARDIAC EKG ORDER(Performed 05/07/2023) * ENDOTRACHEAL TUBE NOTE(Performed 05/04/2023) * ID SLING OPER STRES INCONTINENCE(Performed 05/04/2023) Performed for Diagnosis unknown * ID CYSTOMETROGRAM W/VOICE STUDIES DIRECTOR&UP(Performed 05/02/2023) Performed for Mixed stress and urge urinary incontinence * ID INTRAABDOMINAL PRESSURE TEST(Performed 05/02/2023) Performed for Mixed stress and urge urinary incontinence * ID ANAL/URINARY MUSCLE STUDY(Performed 05/02/2023) Performed for Mixed stress and urge urinary incontinence * ID ELECTRO-UROFLOWMETRY, FIRST(Performed 05/02/2023) Performed for Mixed stress and urge urinary incontinence * URINALYSIS AUTO - POINT OF CARE (AMB) [facility](Performed 05/02/2023) Performed for Mixed stress and urge urinary incontinence * GROSS EXAM PATHOLOGY(Performed 10/20/2001) Results * CARDIAC RHYTHM STRIP ORDER (05/07/2023 1:51 AM CDT) Narrative 05/07/2023 1:51 AM CDT Ordered by an unspecified provider. Scanned Document CARDIAC SERVICES ORD ERABLES * CARDIAC EKG ORDER (05/07/2023 1:51 AM CDT) Narrative 05/07/2023 1:51 AM CDT Ordered by an unspecified provider. Scanned Document CARDIAC SERVICES ORD ERABLES * ETT LINE PERFORMABLE (05/04/2023 7:51 AM CDT) Narrative Neil Lazaro APRN-CRNA - 05/04/2023 7:51 AM CDT Neil Lazaro APRN-CRNA 05/04/2023 7:52 AM Endotracheal Tube Placement: Patient Location: OR. Intubation Event Date/Time: 05/04/2023 7:41 AM Procedure: intubation ([id number]). Procedure Section: Sedation: under general anesthesia. Indications for Airway Management: anesthesia Induction: standard IV Patient Position: sniffing and supine Mask Ventilation: easy. Blade Type: Armijo Blade Size: 2 Laryngoscopy View: grade 1 (full cords) Intubation Adjuncts: stylet Tube: endotracheal tube Placement: oral Tube type: cuff - inflated Tube Size (MM): 7 Depth of Insertion (CM): 22 Measured From: teeth Cuff Inflated With: air Number of Attempts: 1. Placement Verified By: direct visualization, bilateral breath sounds, chest auscultation and CO2 monitor CXR Findings: ETT in proper place. Tube secured with: adhesive tape. Dentition unchanged? Yes Difficult Airway? No. Procedure Start Time: 05/04/2023 7:41 AM. Staff Section Anesthesia Provider: Neil Lazaro APRN-GAB, Performed the procedure Yomaira Chatterjee MD GENERAL ANESTHESIA O RDERABLES * ID ELECTRO-UROFLOWMETRY, FIRST, ID ANAL/URINARY MUSCLE STUDY, ID INTRAABDOMINAL PRESSURE TEST, ID CYSTOMETROGRAM W/VOICE STUDIES DIRECTOR&UP (05/02/2023 5:49 PM CDT) Narrative Alfred Clarke MD - 05/02/2023 5:49 PM CDT Alfred Clarke MD 05/02/2023 5:58 PM Multichannel Urodynamic Testing - Brief Procedure Note Please see report generated in Media files Post-Operative Diagnosis: urodynamic stress urinary incontinence Indications: Multichannel urodynamic testing is being performed to fully evaluate the patient's voiding dysfunction. The risks, benefits and alternatives have been discussed with emphasis on discomfort and urinary tract infections. Her urinalysis was not suspicious for a urinary tract infection unless otherwise noted. UROFLOW: Uroflowmetry was performed. Max flow was 7.8 ml / sec with voided volume of 80 mL Flow pattern: prolonged PVR 5 ml Procedure Details: The patient's urethral meatus was cleaned with Betadine (used if not allergic to topical iodine, otherwise hibiclens was used). A 7 Fr. Single sensor air-charged catheter was place into the vagina or into the rectum if the pelvic prolapse required restitution for adequate testing. A 7 Fr. Dual sensor air-charged catheter was inserted into the urethra. A 7 Fr. Single sensor air-charged catheter was inserted into the vagina to approximate intra-abdominal pressure measurement. During testing, the patient's prolapse was reduced with either procto-swabs, or digitally. Cystometrogram: The bladder was filled with room temperature water at a rate of 100 cc per minute. The patient tolerated this and she was found to have: Sensory Urgency no Maximal cystometric capacity of 527 cc. She does have normal bladder compliance. She does not have loss of urine with a rise in detrusor pressure. Urodynamic Stress Urinary incontinence? yes UPP done? yes; >20 cm H2O yes VLPP Positive yes; Abnormal no Voiding pressure study (VOICE STUDIES DIRECTOR): She voided via detrusor contraction and urethral relaxation. Obstructive pattern? no Areflexic pattern? no. Her post void residual by calculation during the voiding pressure study was 1 cc. EMG: Pelvic floor / urethral muscle study was performed to assess muscular and urethral function due to concern regarding possible voiding dysfunction or abnormal pelvic muscle response. Perineal electrodes were placed bilaterally with green (grounding electrode) on right inner thigh. Resting EMG tone normal during filling. With cough / valsalva, appropriate rise in EMG activity representing normal muscle response to those stimuli. With detrusor contraction there was some activation of pelvic floor with increase in EMG activity associated with urine efflux. Alfred Clarke MD PROCEDURE/MINOR SURG ICAL ORDERABLES * URINALYSIS AUTO - POINT OF CARE (AMB) [facility] (05/02/2023 1:00 PM CDT) Glucose UA neg [facility] [address] Bilirubin UA POCT neg [facility] [address] Ketones UA POCT neg [facility] [address] Specific [place] UA 1.[address] [facility] [address] Blood Urine POCT neg [facility] [address] pH UA 7.[address] [facility] [address] Protein UA neg [facility] [address] Urobilinogen UA neg [facility] [address] Nitrite UA neg [facility] [address] WBC UA neg [facility] [address] Urine URINE / Unknown 05/02/2023 1 :00 PM CDT Alfred Clarke MD LAB - POINT OF CARE ORDERABLES [facility] [address] [place] [address], [facility] [phone] * GROSS EXAM PATHOLOGY (10/20/2001 3:10 PM VULCANIZER OPERATOR) Result CASE NUMBER [id number] Comment: ORDERING PHYSICIAN ZEESHAN ESTRELLA SPECIMEN TYPE Tissue-abd. pannus Date 10/20/2001 Physician Viviana Estrella Gross Description The specimen is received in a single formalin-filled container labeled with the patient's name and abdominal pannus , for gross examination. The specimen consists of a single elliptical shaped fragment of skin with underlying adipose tissue measuring 67 cm. in length x 19 cm. in width x 4.7 cm. in thickness. It weighs 2,500 grams. The skin is whitish-ortiz in color without any recognizable lesions. On sectioning, fibroadipose tissue is unremarkable. TK/bk Diagnosis I. Abdominal pannus, gross examination only. Jw Private Chef [facility] Pathologist Rashaad Do M.D. Sn[place]. 10/25/2001 1057 <1> CPT code 87779 MISCELLANEOUS SAMPLES / Unknown 10/20/2001 3:10 PM VULCANIZER OPERATOR 10/20/2001 3:11 PM VULCANIZER OPERATOR Historical Provider LAB - PATHOLOGY/C YTOLOGY ORDERABLES Care Teams Kaitara Taraka Relationship Specialty Start Date End Date Kali Lawson MD [address] [place] [phone] PCP - General 01/05/23
--- OUTSIDE RECORDS SUMMARY | 2024-12-04 01:04 | XMS_ITS | Encounter Summary ---
Author Organization [facility] Address [address] [place] [address] Care Team Providers Care Compensation/Benefits Specialist Name Role Phone Kali Lawson MD Primary Care Provider [phone] Reason for Visit * Reason Onset Date Comments Discuss Surgery 04/06/2023 Encounter Details Date Type Department Care Team (Late st Contact Info) Description 04/06/2023 Telephone [facility] - ELECTRONIC [employer] GATHERING [employer]ER[employer] PERSON [address] [place] [address] Alfred Clarke MD [address] [place] [address] Discuss Surgery Social History Tobacco Use Types Packs/Day Years Used Date Smoking Tobacco: Never Assessed Sex and Gender Information Value Date Recorded Sex Assigned at Female 04/29/2023 3:35 PM CDT Gender Identity Not on file Sexual Orientation Straight 04/29/2023 3: 35 PM CDT COVID-19 Exposure Response Date Recorded In the last 10 days, have yo u been in contact with someone who was confirmed or suspected to have Coronavirus/COVID-19? No / Unsure 03/31/2023 12:59 PM CDT documented as of this encounter Miscellaneous Notes * Telephone Encounter - Mark Moeller - 04/06/2023 10:51 AM CDT Pt would like to know the total cost of testing that will be performed on 05.02.23 As well as the bladder sling procedure that DR is prepping the patient to have She would like to know that total cost of what she would be paying Wants to be contacted by e-mail if possible documented in this encounter Plan of Treatment Not on file documented as of this encounter Visit Diagnoses Not on filedocumented in this encounter Care Teams Compensation/Benefits Specialist Relationship Specialty Start Date End Date Kali Lawson MD [address] [place] [phone] PCP - General 01/05/23 documented as of this encounter
--- OUTSIDE RECORDS SUMMARY | 2024-12-04 01:04 | XMS_ITS | Encounter Summary ---
Author Organization [facility] Address [facility] [place] [address] Care Team Providers Care Semiconductor Processor Name Role Phone Umang Kumar MD Primary Care Provider Unaor Yan Maria MD Unavailable [phone] Kali Lawson MD Primary Care Provider [phone] Colton Berry DO Primary Care Provider [phone] Gabby Ni Primary Care Provider [phone] Encounter Details Date Type Department Care Team (Late st Contact Info) Description 02/21/2018 [facility] at [address] [address] Raquel Richmond MA Social History Tobacco Use Types Packs/Day Years Used Date Smoking Tobacco: Never Assessed Comments Unknown Sex and Gender Information Value Date Recorded Sex Assigned at Female 11/29/2024 1:08 PM DYE PENETRANT TESTING TECHNICIAN Legal Sex Female 6:48 PM CDT Gender Identity Female 03/24/2022 4:36 AM CDT Sexual Orientation Straight 03/24/2022 4: 36 AM CDT documented as of this encounter Plan of Treatment Upcoming Encounters Date Type Department Care Team (Late st Contact Info) Description 01/14/2025 2:00 PM CDT Appointment [facility] [address] [place] [address] Gabby Ni PA [address] [place] [address] 01/14/2025 3:00 PM CDT Appointment [facility] [address] [place], [place] [id number] Gabby Ni PA [address] [place], [place] [id number] documented as of this encounter Procedures Procedure Name Priority Date/Time Associated Diagnosis Comments CBC (OUTSIDE LAB) Routine 01/18/2018 COMPREHENSIVE METABOLIC PANEL Routine 01/18/2018 THYROID STIM HORMONE TSH Routine 01/18/2018 documented in this encounter Results * THYROID STIM HORMONE, TSH (01/18/2018) TSH 2.68 01/18/2018 us Doc [facility] Final Result * COMPREHENSIVE METABOLIC PANEL (01/18/2018) SODIUM S/P/B 140 POTASSIUM S/P/B 3.9 CO2 28 CHLORIDE S/P/B 105 GLUCOSE 84 mg/dL CALCIUM S/P/B 8.9 BUN 19 CREATININE S/P/B 0.86 0.5 - 1.0 EGFR NON-AFR. AMER. >60 <=90 ALKALINE PHOSPHATASE S/P/B 62 ALT 12 AST 11 BILIRUBIN TOTAL S/P/B 0.4 ALBUMIN S/P/B 3.5 3.5 - 5.0 TOTAL PROTEIN S/P/B 6.2 01/18/2018 us Doc [facility] Edited Resul t - Final * CBC (OUTSIDE LAB) (01/18/2018) WBC 5.5 HGB 13.9 HCT 41.3 PLT 201 01/18/2018 us Doc [facility]-OUTSIDE/ABSTRACTED Final Result documented in this encounter Visit Diagnoses Not on filedocumented in this encounter Care Teams Semiconductor Processor Relationship Specialty Start Date End Date Umang Kumar MD PCP - General INTERNAL MEDICINE 12/22/17 03/17/23 Kali Lawson MD [address] [place] [address] PCP - General FAMILY PRACTICE 03/18/23 07/09/24 Colton Berry DO [address] [place] [address] PCP - General INTERNAL MEDICINE 07/10/24 11/28/24 Gabby Ni PA [address] [place] [address] PCP - General PHYSICIAN CALENDER LET OFF OPERATOR 11/29/24 Yan Walker MD [facility] [address] [place] [address] Marsing Bench Scientist CARDIOVASCULAR DISEASE 02/14/18 documented as of this encounter
--- OUTSIDE RECORDS SUMMARY | 2024-12-04 01:04 | XMS_ITS | Encounter Summary ---
Author Organization [facility] Address [facility] [place] [address] Care Team Providers Care Hot Walker Name Role Phone Umang Kumar MD Primary Care Provider Yan Carey MD Unavailable [phone] Kali Lawson MD Primary Care Provider [phone] Colton Berry DO Primary Care Provider [phone] Gabby Ni Primary Care Provider [phone] Encounter Details Date Type Department Care Team (Late st Contact Info) Description 01/12/2021 [facility] Message [facility] Patient Accounts [address] [place] [address] [place], [facility] Provider Financial Assistance application Social History Tobacco Use Types Packs/Day Years Used Date Smoking Tobacco: Never Assessed Comments No Sex and Gender Information Value Date Recorded Sex Assigned at Female 11/29/2024 1:08 PM MISSION ANALYST Legal Sex Female 6:48 PM CDT Gender Identity Female 03/24/2022 4:36 AM CDT Sexual Orientation Straight 03/24/2022 4: 36 AM CDT COVID-19 Exposure Response Date Recorded In the last month, have you been in contact with someone who was confirmed or suspected to have Coronavirus / COVID-19? No / Unsure 12/24/2020 10:29 PM MISSION ANALYST documented as of this encounter Plan of Treatment Upcoming Encounters Date Type Department Care Team (Late st Contact Info) Description 01/14/2025 2:00 PM CDT Appointment [facility] [address] [facility] [place] [address] Gabby Ni PA [address] [place] [address] 01/14/2025 3:00 PM CDT Appointment [facility] [address] [facility] [place] [address] Gabby Ni PA [address] [place] [address] documented as of this encounter Visit Diagnoses Not on filedocumented in this encounter Care Teams Hot Walker Relationship Specialty Start Date End Date Umang Kumar MD PCP - General INTERNAL MEDICINE 12/22/17 03/17/23 Kali Lawson MD [address] [place] [address] PCP - General FAMILY PRACTICE 03/18/23 07/09/24 Colton Berry DO [address] [place] [address] PCP - General INTERNAL MEDICINE 07/10/24 11/28/24 Gabby Ni PA [address] [place] [address] PCP - General PHYSICIAN TOMBSTONE ERECTOR 11/29/24 Yan Walker MD [facility]. [address] [address] [place] Geriatric Social Worker CARDIOVASCULAR DISEASE 02/14/18 documented as of this encounter
--- OUTSIDE RECORDS SUMMARY | 2024-12-04 01:04 | XMS_ITS | Referral Summary ---
Author Organization [facility] Address [address] [place] [address] Care Team Providers Care Director Of Outreach Name Role Phone Kali Lawson MD Primary Care Provider [phone] Source Comments [facility],non-owned Affiliates and Associated Physician Practices is amultiple site organization consisting of ambulatory clinics and hospital sitesin [place], [place], [place] and [place]. This disclosure is being madepursuant to the Care Everywhere program and may not contain all information available regarding this patient. Last updated 18.[facility] Allergies No known active allergies Medications * Be aware that medications may not be up to date on this document. Alwaysverify current medications with the patient. Medication Sig Dispensed Refills Start Date End Date Status vilazodone (Viibryd) 40 MG tablet Take 1 (one) tablet by mouth once daily 02/24/2023 Active terbinafine (LamISIL) 250 MG tablet TAKE 1 TAB BY MOUTH DAILY FOR 1 WEEK, WAIT ONE MONTH AND REPEAT 3 TIMES IN TOTAL 04/27/2023 Active Cholecalciferol (VITAMIN D3 PO) Active Multiple Vitamins-Minerals (CENTRUM ULTRA WOMENS PO) Active magnesium 500 MG tablet Take 1 (one) tablet by mouth once daily Active Ascorbic Acid (VITAMIN C PO) Take 1,000 mg by mouth once daily Active Other OTC allergy med Active docusate sodium (Colace) 100 MG capsule Take 1 (one) capsule by mouth once daily 30 capsule 05/04/2023 Active polyethylene glycol 3350 (Miralax) 17 GM/SCOOP powder Take 17 (seventeen) g by mouth once daily 238 g 05/04/2023 Active oxyCODONE, immediate release, (Roxicodone) 5 MG tabletIndications:St atus post creation of urethral sling by suprapubic approach Take 1 (one) tablet by mouth every 6 hours as needed for Pain 10 tablet 05/04/2023 Active Active Problems No known active problems Social [...] Mass Index 25.86 06/13/2023 9:04 AM CDT Plan of Treatment Not on file Medical Devices Implanted Type Area Sports Internship Device Identifier Shelf Expiration Date Model / Serial / Lot Sys Ureth Supp Obtryx Midurethral Trnstr Implanted:Qty: 1 on 05/04/2023 by Alfred Clarke MD at [facility] N/A: Vagina Technologie Biol[employer]is Scimed 11/15/2025 [id number] / / [id number] Care Teams Director Of Outreach Relationship Specialty Start Date End Date Kali Lawson MD [facility] [place] [address] PCP - General 01/05/23
--- OUTSIDE RECORDS SUMMARY | 2024-12-04 01:04 | XMS_ITS | Clinical Summary ---
Author Organization [facility] Address [facility] [place] [address] Care Team Providers Care Speech Lang Path Therapist Name Role Phone Yan Walker MD Unavailable [phone] Gabby Ni Primary Care Provider [phone] Allergies Active Allergy Reactions Criticality Noted Date Comments Doxycycline Vomiting 05/16/2023 Medications dicyclomine (BENTYL) 20 MG tablet Take 1 tablet (20 mg total) by mouth every 6 (six) hours. 20 tablet 3 Active vilazodone (VIIBRYD) 40 MG tablet Take 1 tablet (40 mg total) by mouth daily. 2 Active Sodium Sulfate-Mag Sulfate-KCl (SUTAB) 3688-955-535 MG TabIndications: Colitis Take 12 tablets by mouth every 12 (twelve) hours. Take as directed on your instructions 24 tablet 4 Active diclofenac EC (VOLTAREN) 75 MG tabletIndicatio ns:Impingement syndrome of right shoulder Take 1 tablet (75 mg total) by mouth 2 (two) times daily. 28 tablet 4 Active Active Problems Problem Noted Date Diagnosed Date Impingement syndrome of right shoulder 4 Colitis 05/23/2024 Encounters Date Type Department Care Team Description 11/29/2024 1:12 PM SERVICE TRANSFORMER REPAIR SUPERVISOR - 11/29/2024 11:59 PM SERVICE TRANSFORMER REPAIR SUPERVISOR Hospital Encounter [facility] [address] [place] [address] Gabby Ni PA Discharge Disposition: Home or Self Care (Routine Discharge) 11/29/2024 Travel from Last 3 Months Family History Medical History Relation Comments Stroke Father Breast Cancer Neg Hx Relation Status Comments Father Social History Tobacco Use Types Packs/Day Years Used Date Smoking Tobacco: Never Smokeless Tobacco: Never Tobacco Cessation:Counseling Given: No Alcohol Use Standard Drinks/Week Comments Never 0 (1 standard drink = 0.6 oz pur e alcohol) Comments No Sex and Gender Information Value Date Recorded Sex Assigned at Female 11/29/2024 1:08 PM SERVICE TRANSFORMER REPAIR SUPERVISOR Legal Sex Female 6:48 PM CDT Gender Identity Female 03/24/2022 4:36 AM CDT Sexual Orientation Straight 03/24/2022 4: 36 AM CDT Last Filed Vital Signs Vital Sign Reading Time Taken Comments Blood Pressure 126/62 07/11/2024 9:15 AM CDT Pulse 57 07/11/2024 8:45 AM CDT Temperature 36.1 C (96.9 F) 07/11/2024 7:22 AM CDT Respiratory Rate 16 07/11/2024 8:45 AM CDT Oxygen Saturation 97% 07/11/2024 9:15 AM CDT Inhaled Oxygen Concentration - - Weight 71.2 kg (157 lb) 06/29/2024 9:24 AM CDT Height 160 cm (5' 3 ) 06/29/2024 9:24 AM CDT Body Mass Index 27.81 06/29/2024 9:24 AM CDT Plan of Treatment Upcoming Encounters Date Type Department Care Team (Late st Contact Info) Description 01/14/2025 2:00 PM CDT Appointment [facility] [address] [place] [address] Gabby Ni PA [address] [place] [address] 01/14/2025 3:00 PM CDT Appointment [facility] [address] [facility] [address] Gabby Ni PA [facility] [place] [address] Health Maintenance Due Date Last Done Comments Hepatitis C 1974 DTaP, Tdap and Td Vaccines ( 1 - Tdap) 1975 Zoster Vaccines (1 of 2) 2006 Annual Medicare Wellness Visit 2021 Pneumococcal Vaccine: 65+ Years (1 of 1 - PCV) 2021 COVID-19 Vaccine (1 - 2023-2 5 season) 2024 Influenza Adult (#1) 2024 PHQ-2 (Physician [place]) 10/24/2024 Mammogram Screening 11/29/2026 11/29/2024 RSV Immunization or 60+ Years (1 - 1-dose 75+ series) 2031 Colorectal Cancer Screening Colonoscopy (10 Years) 07/11/2034 07/11/2024 Colorectal Cancer Screening FIT/FOBT (1 Year) Discontinued 12/20/2020, 12/20/2020, 12/20/2020 Dexa Scan (General) Completed 11/29/2024, 03/29/2022 Meningococcal B Vaccine Aged Out No l onger eligible based on patient's age to complete this topic Meningococcal Vaccine Aged Out No stefan ina eligible based on patient's age to complete this topic RSV Immunizations Under 20 Months Aged Out No longer eligible based on patient's age to complete this topic Procedures Procedure Name Priority Date/Time Associated Diagnosis Comments BONE DENSITY/DEXA Routine 11/29/2024 2:1 5 PM SERVICE TRANSFORMER REPAIR SUPERVISOR Other primary ovarian failure MG SCREENING W WENDY JAVIER DIGI Routine 11/29/2024 1:51 PM SERVICE TRANSFORMER REPAIR SUPERVISOR Encounter for screening mammogram for breast cancer OCCULT BLOOD, FECES Routine 12/20/2020 3 :45 PM SERVICE TRANSFORMER REPAIR SUPERVISOR Routine general medical examination at a health care facility from Last 3 Months or Most Recently Relevant to Health Maintenance Results * BONE DENSITY/DEXA (11/29/2024 2:15 PM SERVICE TRANSFORMER REPAIR SUPERVISOR) Anatomical Region Laterality Modality Bone Bone Density 12/02/2024 8:36 PM SERVICE TRANSFORMER REPAIR SUPERVISOR Impressions 12/02/2024 8:37 PM SERVICE TRANSFORMER REPAIR SUPERVISOR IMPRESSION: WHO Classification: Normal RECOMMENDATIONS: All patients should ensure an adequate intake of dietary calcium and vitamin D. The NOF recommend adults under the age of 50 need 1000 mg of calcium and 400-800 IU of vitamin D daily. Effective therapy for the prevention and treatment of osteoporosis include bisphosphonates. Follow-up: People with diagnosed cases of osteoporosis or at high risk for fracture should have regular bone mineral density test. For patients eligible for Medicare, routine testing is allowed once every 2 years. Testing frequency can be increased to one year for patients who have rapidly progressing disease, those who are receiving or discontinuing medical therapy to restore bone mass, or have additional risk factors. Referred By: GABBY NI Interpreted By: Augustin Hernandez MD, 12/02/2024 8:36 PM Narrative 12/02/2024 8:37 PM SERVICE TRANSFORMER REPAIR SUPERVISOR [address] [id number] EXAMINATION: BONE DENSITY/DEXA INDICATIONS: Other primary ovarian failure TECHNIQUE: DEXA bone mineral density evaluation was performed in the AP projection over the lumbar spine and both hips utilizing standard imaging techniques. ASSESSMENT: The BMD measured at the AP spine L1-L4 is 1.225 g/cm? with a T-score of 1.6. The BMD measured at the left femoral neck is 0.743 g/cm? with a T-score of -1.0. The BMD measured at the left hip is 0.898 g/cm? with a T-score of -0.4. The BMD measured at the right femoral neck is 0.838 g/cm? with a T-score of - 0.1. The BMD measured at the right hip is 0.968 g/cm? with a T-score of 0.2. FRAX 10-year fracture risk: FRAX not reported because all T-scores are at or above -1.0. Procedure Note Augustin Hernandez MD - 12/02/[address] [address] EXAMINATION: BONE DENSITY/DEXA INDICATIONS: Other primary ovarian failure TECHNIQUE: DEXA bone mineral density evaluation was performed in the APprojection over the lumbar spine and both hips utilizing standard imagingtechniques. ASSESSMENT: The BMD measured at the AP spine L1-L4 is 1.225 g/cm? with a T-score of1.6. The BMD measured at the left femoral neck is 0.743 g/cm? with a T-score of-1.0. The BMD measured at the left hip is 0.898 g/cm? with a T-score of -0.4. The BMD measured at the right femoral neck is 0.838 g/cm? with a T-scoreof -0.1. The BMD measured at the right hip is 0.968 g/cm? with a T-score of 0.2. FRAX 10-year fracture risk: FRAX not reported because all T-scores are at or above -1.0. IMPRESSION: WHO Classification: Normal RECOMMENDATIONS: All patients should ensure an adequate intake of dietary calcium andvitamin D. The NOF recommend adults under the age of 50 need 1000 mg ofcalcium and 400-800 IU of vitamin D daily. Effective therapy for theprevention and treatment of osteoporosis include bisphosphonates. Follow-up: People with diagnosed cases of osteoporosis or at high risk for fractureshould have regular bone mineral density test. For patients eligible forMedicare, routine testing is allowed once every 2 years. Testing frequencycan be increased to one year for patients who have rapidly progressingdisease, those who are receiving or discontinuing medical therapy torestore bone mass, or have additional risk factors. Referred By: GABBY NI Interpreted By: Augustin Hernandez MD, 12/02/2024 8:36 PM us Gabby BROWN DEXA Final Result * MG SCREENING W WENDY JAVIER SWANSONI (11/29/2024 1:51 PM SERVICE TRANSFORMER REPAIR SUPERVISOR) Anatomical Region Laterality Modality Breast Bilateral Mammography 11/29/2024 5:00 PM SERVICE TRANSFORMER REPAIR SUPERVISOR Impressions 11/29/2024 5:04 PM SERVICE TRANSFORMER REPAIR SUPERVISOR ===== IMPRESSION: ===== 1. Additional imaging of the left breast Assessment: ACR BI-RADS 0 - INCOMPLETE: NEEDS ADDITIONAL IMAGING EVALUATION Recommendation: 1:Additional Imaging Left Comments: Ordered By: GABBY NI Interpreted By: Nate Schneider, 11/29/2024 5:00 PM Narrative 11/29/2024 5:04 PM SERVICE TRANSFORMER REPAIR SUPERVISOR [facility] [address] [place] [address] EXAMINATION: Digital bilateral screening mammogram with 3-D tomosynthesis EXAM DATE/TIME: 11/29/2024 1:16 PM REASON FOR EXAM: Routine screening COMPARISON: Reestablish baseline. Prior mammogram 20 years ago Technique: Digital screening mammography of both breasts was performed in addition to 3-D Tomosynthesis technique. This study was read with the assistance of a computer-aided detection system. Tissue density: There are scattered areas of fibroglandular density. Findings: Asymmetric tissue within the slightly medial and superior left breast. In its anterior depth. No malignant microcalcifications. No skin thickening or nipple traction. Axillary regions are within normal limits. Benign lymph node in upper outer quadrant of the left breast [facility] Final Result * OCCULT BLOOD, FECES (12/20/2020 3:45 PM SERVICE TRANSFORMER REPAIR SUPERVISOR) OCCULT BLOOD FECAL NEGATIVE NEGATIVE 12/22/2020 7:03 PM SERVICE TRANSFORMER REPAIR SUPERVISOR [facility] STOOL SPECIMEN / Unknown 12/20/2020 3:45 PM SERVICE TRANSFORMER REPAIR SUPERVISOR Ben Viera MD BODY FLUIDS AND STOOLS ORDERAB LES Final Result [facility] [address] [place] [address], from Last 3 Months or Most Recently Relevant to Health Maintenance Insurance [employer] Care Teams Speech Lang Path Therapist Relationship Specialty Start Date End Date Gabby Ni PA [address] [place] [address] PCP - General PHYSICIAN ENGINEERING DEPARTMENT CHAIR 11/29/24 Yan Walker MD [facility]. [facility] [address] [place] [address] Dea Nib Inspector CARDIOVASCULAR DISEASE 02/14/18
--- OUTSIDE RECORDS SUMMARY | 2024-12-04 01:04 | XMS_ITS | Clinical Summary ---
Author Organization [facility] Address [address] [place] [address] Care Team Providers Care Plumber Helper Name Role Phone Kali Lawson MD Primary Care Provider [phone] Source Comments [facility],non-owned Affiliates and Associated Physician Practices is amultiple site organization consisting of ambulatory clinics and hospital sitesin [place], [place], [place] and [place]. This disclosure is being madepursuant to the Care Everywhere program and may not contain all information available regarding this patient. Last updated 18.[facility] Allergies No known active allergies Medications * [...] Active Active Problems No known active problems Family History Medical History Relation Name Comments CVA Father Cancer - Colon Father Depression Father Hypertension Father Osteoporosis Mother Thyroid Disease Mother Relation Name Status Comments Father Mother Social History Tobacco Use Types Packs/Day Years [...] 06/13/2023 9:04 AM CDT Plan of Treatment Health Maintenance Due Date Last Done Comments BONE DENSITY TESTING 1955 COLOGUARD (AGES 45-75) - COL ON CA SCREENING 1956 COLON MONITORING 1956 COLONOSCOPY - COLON CA SCREENING 1956 CT COLONOGRAPHY - COLON CA SCREENING 1955 Colorectal Cancer Screening 1956 FIT - COLON CA SCREENING 1956 FLEX SIG - COLON CA SCREENING 1956 LIPID TESTING 1956 MAMMOGRAM 1955 HEPATITIS C SCREENING 06/27/1974 DTAP/TDAP/TD VACCINES (1 - Tdap) 1975 PNEUMOCOCCAL VACCINE 50+ (1 of 1 - PCV) 2006 ZOSTER VACCINE (1 of 2) 2006 SCREENING FOR DIABETES 06/13/2023 COVID-19 VACCINE (2 - 2023-2 5 season) 2024 07/22/2021 INFLUENZA VACCINE (#1) 2024 , 08/04/2015 DEPRESSION SCREENING 10/24/2024 06/13/2023 MEDICARE AWV CALENDAR YEAR 2024 Respiratory Syncytial Virus (RSV) Vaccine Pt: or over 60 yrs (1 - 1-dose 75+ series) 2031 HEPATITIS B VACCINE Aged Out No longe r eligible based on patient's age to complete this topic HIB VACCINE Aged Out No longer eligi ble based on patient's age to complete this topic HPV VACCINE Aged Out No longer eligi ble based on patient's age to complete this topic MENINGOCOCCAL (Group B) VACCINE Aged Out No longer eligible b ased on patient's age to complete this topic MENINGOCOCCAL VACCINE Aged Out No stefan ina eligible based on patient's age to complete this topic Medical Devices Implanted Type Area Teacher Emotionally Impaired Device Identifier Shelf Expiration Date Model / Serial / Lot Sys Ureth Supp Obtryx Midurethral Trnstr Implanted:Qty: 1 on 05/04/2023 by Alfred Clarke MD at [facility] N/A: Vagina [employer] Scimed 11/15/2025 [id number] / / [id number] Care Teams Plumber Helper Relationship Specialty Start Date End Date Kali Lawson MD [facility] [place] [address] PCP - General 01/05/23
--- OUTSIDE RECORDS SUMMARY | 2024-12-04 01:04 | XMS_ITS | Encounter Summary ---
Author Organization [facility] Address [facility] [place] [address] Care Team Providers Care Office Machine Repair Shop Supervisor Name Role Phone Umang Kumar MD Primary Care Provider UnaYan Weiss MD Unavailable [phone] Kali Lawson MD Primary Care Provider [phone] Colton Berry DO Primary Care Provider [phone] Gabby Ni Primary Care Provider [phone] Encounter Details Date Type Department Care Team (Late st Contact Info) Description 01/05/2021 [place] [facility] Patient Accounts [address] [place] [address] [facility] Provider RE: Financial Assistance Social History Tobacco Use Types Packs/Day Years Used Date Smoking Tobacco: Never Assessed Comments No Sex and Gender Information Value Date Recorded Sex Assigned at Female 11/29/2024 1:08 PM ENDODONTICS DENTIST Legal Sex Female 6:48 PM CDT Gender Identity Female 03/24/2022 4:36 AM CDT Sexual Orientation Straight 03/24/2022 4: 36 AM CDT COVID-19 Exposure Response Date Recorded In the last month, have you been in contact with someone who was confirmed or suspected to have Coronavirus / COVID-19? No / Unsure 12/24/2020 10:29 PM ENDODONTICS DENTIST documented as of this encounter Plan of Treatment Upcoming Encounters Date Type Department Care Team (Late st Contact Info) Description 01/14/2025 2:00 PM CDT Appointment [facility] [address] [facility] [place] [address] Gabby Ni PA [address] [place] [address] 01/14/2025 3:00 PM CDT Appointment [facility] [address] [facility] [place] [address] Gabby Ni PA [address] [place] [address] documented as of this encounter Visit Diagnoses Not on filedocumented in this encounter Care Teams Office Machine Repair Shop Supervisor Relationship Specialty Start Date End Date Umang Kumar MD PCP - General INTERNAL MEDICINE 12/22/17 03/17/23 Kali Lawson MD [address] [place] [address] PCP - General FAMILY PRACTICE 03/18/23 07/09/24 Colton Berry DO [address] [place] [address] PCP - General INTERNAL MEDICINE 07/10/24 11/28/24 Gabby Ni PA [address] [place] [address] PCP - General PHYSICIAN LOGGING SHOVEL OPERATOR 11/29/24 Yan Walker MD [facility]. [address] [address] [place] Tax Professional CARDIOVASCULAR DISEASE 02/14/18 documented as of this encounter
[2024-12-04] MEDS: KETOROLAC 15 MG/ML VIAL (*BKC) IV PUSH (09:00)
[2024-12-04] MEDS: LACTATED RINGERS 1,000 ML 30 ML IV CONT ×2 (09:00→11:36)
--- NOTE | 2024-12-04 09:47 | WPDANESEPPF ---
Anes - Initial Pre Proc Eval Procedure: Operation Date: 12/04/24 10:30 Proposed Procedures p Right Shoulder Arthroscopic Rotator Cuff Repair with Subacromial Decompression - Will Yap MD Date/Time: 12/04/24 09:47 Surgeon: Will Yap MD Pre Op Diagnosis: complete rotaor cuff tear right shoulder Patient Data Age: 69 Gender: F Height: 1.6 m Weight: 77.4 kg Last Vital Signs Temp 36.8 C 12/04/24 09:00 Pulse 84 12/04/24 09:00 Resp 14 12/04/24 09:00 BP 135/80 12/04/24 09:00 Pulse Ox 97 12/04/24 09:00 O2 Del Method Room Air 12/04/24 09:00 Allergies Allergy/AdvReac Type Severity Reaction Status Date / Time doxycycline AdvReac Intermediate Abdominal Uncoded 12/04/24 09:43 Pain Home Medications ?Medication ?Instructions ?Recorded ?Confirmed ?Type vilazodone 40 mg tablet (Viibryd) 40 mg PO DAILY 09/30/22 11/22/24 History cholecalciferol (vitamin D3) 125 125 mcg PO DAILY 04/29/23 11/22/24 History mcg (5,000 unit) capsule multivitamin 1 tablet PO DAILY 04/29/23 11/22/24 History magnesium 200 mg tablet 200 mg PO DAILY 08/24/24 11/22/24 History hydrocodone 5 mg-acetaminophen 325 1 tablet PO Q8H PRN pain #21 tabs 09/07/24 11/22/24 Rx mg tablet cetirizine 10 mg tablet (Aller-Rob) 10 mg PO DAILY PRN allergy symptoms 11/22/24 11/22/24 History Patient hx anesthesia problems: none Family hx anesthesia problems: none Results Review: All pre-operative results and documents have been reviewed as part of the pre-operative evaluation. [facility] Past Medical History Medical History Osteoarthritis Neck Pain Thyromegaly thyroid US normal. Cholelithiasis Hospital discharge follow-up Insomnia Restless leg syndrome Anxiety Shingles Surgical History Surgical History History of incisional hernia repair 05/19/23 Open incarcerated epigastric this is incisional hernia repair with Ventralex ST mesh S/P hernia surgery H/O esophagogastroduodenoscopy 05/20/22 H/O colonoscopy 05/20/22 repeat 5 years H/O abdominoplasty Tonsillectomy planned delivery delivered Deficient knowledge of hysterectomy History of repair of hiatal hernia Family History Family History Father Hypertension Family history of arthritis Family history of malignant neoplasm Carcinoma of colon Depression Cerebrovascular accident Mother Family history of chronic obstructive pulmonary disease Family history of emphysema Depression Thyroid disorder Sibling Depression Thyroid disorder Social History Social History Smoking status: Never smoker Second hand tobacco smoke exposure: No Alcohol intake: never Substance use: never Substance use type: does not use Do You Feel Safe in your Home?: Yes Lack of Transportation: No Lack of Food: Never True Current Housing: I Have Housing Concerned About Future Housing: No Difficulty Paying Gas/Electric Bills: No Difficulty Paying for Meds: No Currently Unemployed: No Education: High School Diploma/GED Difficulty w/ Childcare or Family Care: No Living arrangements: with family Occupation/Education: occupation Gender identity (if verbalized by the patient): Female Sexual Orientation (if Verbalized by the Patient): Straight or Heterosexual Spiritual care concerns: No Agree to blood products: Yes Anes - Eval Final PreProcedure Day of Procedure 12/04/24 09:47 Patient weight: normal Heart: regular rate and rhythm Lungs: clear to auscultation Airway: Mallampati scale class II Neurological: alert and oriented Last oral intake: >/= 8 hours ASA classification: II Emergent: no Anesthetic plan: proceed Anesthesia type and monitoring: general ETT and standard monitoring Results Review: All pre-operative results and documents have been reviewed as part of the pre-operative evaluation. Informed Consent: The patient's anesthetic plan and its attendant risks and benefits were discussed with the patient/family/POA. Questions were solicited and answers provided to the satisfaction of the patient/family/POA.
--- NOTE | 2024-12-04 09:53 | WPDHPUPDATE1 ---
History and Physical Update Update Date/Time: 12/04/24 09:53 History and Physical has been reviewed, including an updated exam of the patient. There are NO changes in the patient's condition. Risks, benefits, and alternatives have been discussed and questions answered. Patient agrees to proceed with procedure.
--- NOTE | 2024-12-04 10:01 | WPDANESPNB ---
Anes - Peripheral Nerve Block Date/Time: 12/04/24 10:01 I have discussed with the patient/family/POA the placement of a peripheral nerve block for post-operative pain management, including associated risks, benefits, complications, and side effects. Alternative methods of post-operative analgesia were detailed. Questions were solicited and answers provided to the satisfaction of the patient/family/POA. Time-Out: A pre-procedural Time-Out was completed immediately before starting the procedure and confirmed: Patient Identification, Site, Procedure, Patient Position and the Availability of Requisite Equipment. Clinical Indications: Acute post-operative pain management requested by the operative surgeon. Nerve Block Insertion Note Anes-nerve block: interscalene right Patient position: supine Skin prep: chlorhexidine Needle: 22 gauge, stimulating, insulated echogenic needle. Needle length: 50 mm Technique: ultrasound Injectate: bupivacaine 0.5% with epi 5 mcg/ml (30) and dexamethasone (mg) (8) Observations: tolerated well Complications: none Procedure start time:: 0950 Procedure end time:: 1000
[2024-12-04] MEDS: ceFAZolin 2 GM/D5W 50 ML 2 GM/50 ML BAG IVPB (10:03)
--- NOTE | 2024-12-04 16:13 | W.PM.PROC2 ---
Procedure Note - Detailed Date of Procedure 12/04/24 Pre-op Diagnosis Complete rotator cuff tear right shoulder Post-op Diagnosis Other (1. Rotator cuff tear 2. Subacromial impingement 3. Degenerative labral tear) Procedure Performed Right shoulder 1. Arthroscopic rotator cuff repair 2. Arthroscopic subacromial decompression 3. Arthroscopic labral debridement Surgeon Will Yap MD Dairy Equipment Repairer Valery Brown PA-C Anesthesia General and Regional ( interscalene block) Findings Small anterior full-thickness rotator cuff tear of the supraspinatus. Degenerative superior labral tear treated with debridement. Biceps anchor was otherwise stable. Low-grade split partial tear of the subscapularis treated with debridement. Large anterolateral subacromial spur and spurs at the distal clavicle. Decompression and coplaning performed. Rotator cuff repaired with a single bone tunnel and 3 sutures. Description of Procedure Preoperative antibiotics were given. An interscalene block was administered in the preoperative area. The patient was bought brought to the operating room. A general anesthetic was administered. The patient was carefully positioned in the beach chair position. The head and neck were carefully positioned. The non operative extremity was also carefully positioned. The shoulder was prepped and draped in the usual sterile fashion. Examination was performed. Standard posterior and anterior arthroscopic portals were established. Inflow achieved with the arthroscopic pump using saline and epinephrine. The glenohumeral joint was carefully inspected. Articular cartilage was normal. Full-thickness supraspinatus tear less than 1 cm. Minor split tearing of the upper subscapularis. Degenerative labral tearing without instability treated with debridement. Attention was turned to the subacromial space. The bursa was very thickened and proliferative. A complete bursectomy was performed. The anterolateral prominent acromion was decompressed with the arthroscopic bur. Co planing of the distal end of the clavicle was performed as there were significant impinging osteophytes noted on the MRI. The tear configuration was carefully assessed. At this point, 1 tunnel was created at the rotator cuff. Three sutures were passed through the tunnel. All sutures were then passed through the cuff tissue. The sutures were tied arthroscopically. The arthroscopic instruments were removed. The wounds were closed with 3-0 Monocryl subcuticular suture and steri strips. There were no complications. A sling was applied and the patient brought to the recovery room. Physician delinquent tax collector assistant, Valery Brown PA-C, required for surgery; including patient positioning, draping, arthroscopic camera operation, maintaining instrument position, suture retrieval, wound closure, and dressing and sling placement. Estimated Blood Loss 20 Pathology None sent Complications No immediate complications Condition Stable Disposition PACU [facility] Billing Surgery - Charge Forward: Surgery Billing (do not bill the labral debridement.)
== END 2024-12-04 13:46 | disposition home or self-care (01) ==
PROVIDERS: PCP Physician Assistant Medical; Visit Provider Orthopaedic Surgery
PROC: (CPT 29805; principal; 2024-12-04 10:30)
DX: M75.121 Complete rotator cuff tear or rupture of right shoulder, not specified as traumatic (principal); M12.811 Other specific arthropathies, not elsewhere classified, right shoulder; G89.18 Other acute postprocedural pain; F41.9 Anxiety disorder, unspecified; G25.81 Restless legs syndrome; G47.00 Insomnia, unspecified; Z79.891 Long term (current) use of opiate analgesic; Z98.890 Other specified postprocedural states; Z80.0 Family history of malignant neoplasm of digestive organs; Z82.49 Family history of ischemic heart disease and other diseases of the circulatory system
CPT/HCPCS: 64415; 29827; 29826; J0171; J0690; J1100; J1885; J2250; J2405; J2704; J3010; J7120

== ENCOUNTER 2025-02-26 09:45 | Outpatient (RCR) | payer OTHER, SELFPAY ==
[2025-01-01 09:35] VITALS: BP_SYST 80
--- NOTE | 2025-01-01 10:39 | PTOPEVAL1 ---
Assessment and note entered by Jackie Styles, PT Evaluation Information Assessment Status Evaluation Diagnosis other post procedural state ICD-10 Condition Codes (PT) Pain in right shoulder M25.511,Weakness R53.1 Subjective Information Pt currently not taking pain medication. Reports took her oxycodone initially but became constipated and didn't want to take any more. Pt is right hand dominant. Pt reports has been using ice on the shoulder, used heat on her neck. tender in the right anterior chest Reported Pain Level Pain Score 2: Self Report Assessment PT Clinical Summary Pt presents 4 weeks post-op rotator cuff repair of supraspinatus, subacromial debridement, labral and subscapularis debridement. She has been consistent in her sling usage, and performing her exercises to the best of her ability. She shows decreased ROM as expected at this time, but did well tolerating end-range today. Her home exercises have been updated and we reviewed improved ways of performing her current home exercises. Pt strength not tested due to her phase of post-operative protocol. Pt will benefit from physical therapy to progress ROM, strength, and overall use while reducing discomfort to reach her goals and return to PLOF without pain. Plan of Care Interventions Electrical Stimulation,Hot Pack/Cold Pack,Manual Therapy,Neuro Re-education,Patient/Caregiver Education,Therapeutic Activities,Therapeutic Exercise,Self-Care/Home Management,Other Other Interventions Taping, home TENS unit PT Services Indicated Yes Treatment Frequency and 2-3x weekly x 20 visits Duration These treatments will address the objective and functional deficits as defined above. The patient will be advanced safely and appropriately in order for the patient to progress towards his/her prior level of function. Additional exercises will be introduced and as well as a comprehensive home exercise program upon discharge, if needed, ?to ensure carryover of functional gains achieved in the clinic. This treatment plan has been reviewed and agreement upon by the patient.
--- NOTE | 2025-01-01 10:40 | OPREHPOC ---
Outpatient Therapy Plan of Care This is a Multidisciplinary Plan of Care that may contain components documented by all disciplines (PT, OT, and ST.) PT Goal 1 Goal / Goal Update Pt will be independent in HEP Pt will verbalize understanding of diagnosis and prognosis Target Visit 10 PT Problem 2 PT Problem #2 Pain PT Goal 1 Goal / Goal Update Pt will report lowest pain rating at 0/10 to show improvement in overall discomfort Target Visit 10 PT Goal 2 Goal / Goal Update Pt will report greatest pain level at 3/10 or less to improve ADLs and activities Target Visit 20 PT Problem 3 PT Problem #3 Impaired Range of Motion PT Goal 1 Goal / Goal Update Pt will demonstrate passive ROM R shoulder flexion of 130 degrees or greater Target Visit 10 PT Goal 2 Goal / Goal Update Pt will demonstrate passive ROM abduction of 130 or greater Target Visit 20 PT Problem 4 PT Problem #4 Impaired Strength PT Goal 1 Goal / Goal Update Pt will demonstrate 3/5 in all tested planes for right shoulder Target Visit 10 PT Goal 2 Goal / Goal Update Pt will demonstrate RUE strength equal to LUE strength in all planes
[2025-01-24 09:32] VITALS: BP_SYST 120
--- NOTE | 2025-01-24 11:55 | PTOPPROG ---
Assessment and note entered by Jackie Styles, PT Evaluation Information Assessment Status Progress Diagnosis other post procedural state ICD-10 Condition Codes (PT) Pain in right shoulder M25.511,Weakness R53.1 Subjective Information Is back tender cylinder in the anterior shoulder with exercises but not with other activities. Had once instance where fell against a wall but soreness resolved within 2 days. Has been able to wean from sling no issues. Getting clothes on is much easier, washing her face is easier. Has been cautions b/c surgeon stated 30 days would be completely healed so have not performed any heavy duty cleaning. Assessment PT Clinical Summary Pt has attended therapy for her right rotator cuff repair 12/04/24. She is progressing slowly but consistently with her range, has improving strength though is still lacking. Her highest pain level recently she reports as a 3/10 but has not achieved 0/10 at rest yet. She reports greater ease with ADLs as well. Pt does report being cautious due to fear of damaging her repair. Pt will benefit from continued therapy to continue progression and reach nursing home goals. Plan of Care Interventions Electrical Stimulation,Hot Pack/Cold Pack,Manual Therapy,Neuro Re-education,Patient/Caregiver Education,Therapeutic Activities,Therapeutic Exercise,Self-Care/Home Management,Other Other Interventions Taping, home TENS unit PT Services Indicated Yes Treatment Frequency and continue 2-3x weekly x 10 visits Duration These treatments will address the objective and functional deficits as defined above. The patient will be advanced safely and appropriately in order for the patient to progress towards his/her prior level of function. Additional exercises will be introduced and as well as a comprehensive home exercise program upon discharge, if needed, ?to ensure carryover of functional gains achieved in the clinic. This treatment plan has been reviewed and agreement upon by the patient.
[2025-02-20 09:34] VITALS: BP_SYST 120
--- NOTE | 2025-02-20 17:44 | PTOPPROG ---
Assessment and note entered by Jackie Styles, PT Evaluation Information Assessment Status Progress Diagnosis other post procedural state ICD-10 Condition Codes (PT) Pain in right shoulder M25.511,Weakness R53.1 Subjective Information Pt reports heavy duty chores like vacuuming and sweeping are much easier. Tenderness in right anterior chest resolved. Most challenging activity currently is putting arm behind back. Is doing well with reaching behind for pulling up pants. Perceived improvement: 95%, needs to work on the back part, and is not lifting yet. Was able to raise her shutters today with both arms Assessment PT Clinical Summary Pt has attended therapy consistently post RTC repair. She has made great progress related to her pain levels and daily function. Her range continues to improve slowly but consistently with minimal residual discomfort. Her strength of surgical versus non-surgical UE is minimally decreased. However pt has not yet returned to high level strength activities such as working in her garden, and continues to lack normative ROM in the scapular and abduction planes with capsular end- feels. Pt will benefit from continued therapy at a decreased frequency in order to continue improving ROM in lacking planes, scapulohumeral kinematics, and high level strengthening to meet her goals. Plan of Care Interventions Electrical Stimulation,Hot Pack/Cold Pack,Manual Therapy,Neuro Re-education,Patient/Caregiver Education,Therapeutic Activities,Therapeutic Exercise,Self-Care/Home Management,Other Other Interventions Taping, home TENS unit PT Services Indicated Yes Treatment Frequency and 1-2x weekly x 10 visits Duration These treatments will address the objective and functional deficits as defined above. The patient will be advanced safely and appropriately in order for the patient to progress towards his/her prior level of function. Additional exercises will be introduced and as well as a comprehensive home exercise program upon discharge, if needed, ?to ensure carryover of functional gains achieved in the clinic. This treatment plan has been reviewed and agreement upon by the patient.
--- NOTE | 2025-02-20 17:44 | OPREHPOC ---
Outpatient Therapy Plan of Care This is a Multidisciplinary Plan of Care that may contain components documented by all disciplines (PT, OT, and ST.) PT Problem 1 PT Problem #1 Knowledge Deficit PT Goal 1 Goal / Goal Update Pt will be independent in HEP Pt will verbalize understanding of diagnosis and prognosis Target Visit 10 Progress Met PT Problem 2 PT Problem #2 Pain PT Goal 1 Goal / Goal Update Pt will report lowest pain rating at 0/10 to show improvement in overall discomfort Target Visit 10 Progress Met PT Goal 2 Goal / Goal Update Pt will report greatest pain level at 3/10 or less to improve ADLs and activities Target Visit 20 Progress Met PT Problem 3 PT Problem #3 Impaired Range of Motion PT Goal 1 Goal / Goal Update Pt will demonstrate passive ROM R shoulder flexion of 130 degrees or greater Target Visit 10 Progress Met PT Goal 2 Goal / Goal Update Pt will demonstrate passive ROM abduction of 130 or greater - progressed to 100 Target Visit 20 Progress Partially Met PT Problem 4 PT Problem #4 Impaired Strength PT Goal 1 Goal / Goal Update Pt will demonstrate 3/5 in all tested planes for right shoulder Target Visit 10 Progress Met PT Goal 2 Goal / Goal Update Pt will demonstrate RUE strength equal to LUE strength in all planes - within 1/2 muscle grade Progress Partially Met PT Problem 5 PT Problem #5 Impaired Strength PT Goal 1 Goal / Goal Update Pt will report ability to lift her grandchildren in to her lap without issue. Target Visit 30 PT Goal 2 Goal / Goal Update Pt will report ability to return to gardening without modifications or deficits Target Visit 30
--- NOTE | 2025-03-27 10:55 | PTOPDC ---
Assessment and note entered by Jackie Styles, PT Evaluation Information Assessment Status Discharge - Pt Not Present Diagnosis other post procedural state ICD-10 Condition Codes (PT) Pain in right shoulder M25.511,Weakness R53.1 Assessment PT Clinical Summary Pt called and stated her shoulder is doing well. States she is doing her strengthening at home independently and would like to discharge her shoulder POC. Plan of Care PT Services Indicated No
== END 2025-03-27 11:10 | disposition home or self-care (01) ==
LOC: ANHHIPT 09:45
PROVIDERS: PCP Physician Assistant Medical; Visit Provider Physician Assistant Surgical
DX: Z98.890 Other specified postprocedural states (principal); Z47.89 Encounter for other orthopedic aftercare
CPT/HCPCS: 97014; 97110; 97112; 97140; 97161; 97750; G0283